=== PATIENT | male | born 1945 | race Caucasian/White ===

== ENCOUNTER → 2017-09-20 11:44 | Outpatient (CLI) | payer OTHER, SELFPAY ==
[2017-09-20 12:26] LABS: Appearance Urine UA CLEAR; Bilirubin Urine UA NEGATIVE (NEGATIVE); Color Urine UA YELLOW; Glucose Urine UA NEGATIVE (Normal); Ketones Urine UA NEGATIVE (NEGATIVE); Leukocyte Esterase Urine UA NEGATIVE (NEGATIVE); Nitrite Urine UA Negative (Negative); Occult Blood Urine UA NEGATIVE (Negative); Protein Urine UA TRACE (Negative); Specific Gravity Urine UA 1.025 (1.000-1.035); Urobilinogen Urine UA 0.2 E.U./dL (0.2)
[2017-09-20 12:34] LABS: Add Manual Diff / Slide Review NO; Basophils Percent Auto 0.6 % (0-2); Eosinophils Percent Auto 1.4 % (2-4); Hematocrit 40.8 % (41-53); Hemoglobin 13.6 g/dL (13.5-17.5); Mean Corpuscular HGB Conc 33.2 % (30-36); Mean Corpuscular Hemoglobin 27.1 PG (26-34); Mean Corpuscular Volume 81.6 fL (80-100); Monocytes Percent Auto 4.4 % (3-14); Neutrophils Absolute Auto 4700 /uL (3000-5900); Neutrophils Percent Auto 67.6 % (50-75); Platelet Count 252 X10^3/uL (150-400); Red Cell Distribution Width 13.9 % (11.6-14.8)
[2017-09-20 12:48] LABS: Alanine Aminotransferase 24 IU/L (21-72); Albumin 4.5 g/dL (3.5-5.0); Albumin Globulin Ratio 1.5 (1.0-2.8); Alkaline Phosphatase 80 U/L (38-126); Aspartate Aminotransferase 25 IU/L (17-59); BUN Creatinine Ratio 20.9 (6-22); Bilirubin Total 0.6 mg/dL (0.2-1.3); Blood Urea Nitrogen 23 mg/dL (9-20); Calcium 9.6 mg/dL (8.4-10.2); Carbon Dioxide 33 mmol/L (22-32); Chloride 103 mmol/L (98-107); Cholesterol 178 mg/dL (140-199); Estimated Glomerular Filt Rate > 60.0 mL/min (>60); Glucose 95 mg/dL (80-110); HDL Cholesterol 46 mg/dL (40-60); HEMOLYSIS < 15 (0-50); LDL Cholesterol Calculated 75 mg/dL (<100); Potassium 5.3 mmol/L (3.4-5.1); Sodium 145 mmol/L (137-145); Total Protein 7.5 g/dL (6.3-8.2); Triglycerides 287 mg/dL (35-150)
[2017-09-20 13:15] LABS: Prostate Specific Antigen Scrn 2.23 ng/mL (0.1-4.0)
[2017-09-20 13:18] LABS: Thyroid Stimulating Hormone 1.65 uIU/mL (0.47-4.68)
== END ==
PROVIDERS: PCP Family Medicine; Visit Provider Family Medicine
DX: E78.5 Hyperlipidemia, unspecified (principal); I10 Essential (primary) hypertension; Z12.5 Encounter for screening for malignant neoplasm of prostate
CPT/HCPCS: 36415; 80053; 80061; 81003; 84443; 85025; G0103

== ENCOUNTER → 2018-04-02 10:20 | Outpatient (CLI) | payer OTHER, SELFPAY ==
[2018-04-02 11:20] LABS: Add Manual Diff / Slide Review YES; Hematocrit 43.7 % (41-53); Hemoglobin 14.6 g/dL (13.5-17.5); Mean Corpuscular HGB Conc 33.4 % (30-36); Mean Corpuscular Hemoglobin 27.7 PG (26-34); Mean Corpuscular Volume 82.8 fL (80-100); Red Blood Cell Count 5.28 X10^6/uL (4.5-5.9); Red Cell Distribution Width 13.9 % (11.6-14.8); White Blood Cell Count 7.4 X10^3/uL (4.5-11.0)
[2018-04-02 11:51] LABS: Neutrophils Absolute Manual 4662 /uL (3000-5900); Total Cells Counted 100
[2018-04-02 11:58] LABS: Alanine Aminotransferase 30 IU/L (21-72); Albumin 4.6 g/dL (3.5-5.0); Albumin Globulin Ratio 1.4 (1.0-2.8); Alkaline Phosphatase 84 U/L (38-126); Aspartate Aminotransferase 24 IU/L (17-59); Bilirubin Total 0.6 mg/dL (0.2-1.3); Blood Urea Nitrogen 21 mg/dL (9-20); Calcium 9.5 mg/dL (8.4-10.2); Carbon Dioxide 30 mmol/L (22-32); Chloride 100 mmol/L (98-107); Cholesterol 192 mg/dL (140-199); Estimated Glomerular Filt Rate > 60.0 mL/min (>60); Globulin 3.3 g/dL (1.7-4.1); Glucose 93 mg/dL (80-110); HDL Cholesterol 50 mg/dL (40-60); HEMOLYSIS < 15 (0-50); LDL Cholesterol Calculated 80 mg/dL (<100); Potassium 4.5 mmol/L (3.4-5.1); Sodium 141 mmol/L (137-145); Total Protein 7.9 g/dL (6.3-8.2); Triglycerides 310 mg/dL (35-150)
[2018-04-02 12:29] LABS: Thyroid Stimulating Hormone 1.38 uIU/mL (0.47-4.68)
== END ==
PROVIDERS: PCP Family Medicine; Visit Provider Family Medicine
DX: E78.5 Hyperlipidemia, unspecified (principal); I10 Essential (primary) hypertension; R53.83 Other fatigue
CPT/HCPCS: 36415; 80053; 80061; 84403; 84443; 85025

== ENCOUNTER → 2018-10-24 15:51 | Outpatient (CLI) | payer OTHER, SELFPAY ==
[2018-10-24 16:27] LABS: Add Manual Diff / Slide Review NO; Basophils Absolute Auto 0 /uL (0-100); Basophils Percent Auto 0.7 % (0-2); Eosinophils Absolute Auto 200 /uL (0-450); Eosinophils Percent Auto 2.6 % (2-4); Hematocrit 40.9 % (41-53); Hemoglobin 13.6 g/dL (13.5-17.5); Lymphocytes Absolute Auto 1900 /uL (1100-4500); Lymphocytes Percent Auto 31.5 % (25-40); Mean Corpuscular HGB Conc 33.3 % (30-36); Mean Corpuscular Hemoglobin 27.5 PG (26-34); Mean Corpuscular Volume 82.7 fL (80-100); Monocytes Absolute Auto 400 /uL (0-900); Monocytes Percent Auto 5.9 % (3-14); Neutrophils Absolute Auto 3700 /uL (1500-7000); Neutrophils Percent Auto 59.3 % (50-75); Platelet Count 241 X10^3/uL (150-400); Red Blood Cell Count 4.95 X10^6/uL (4.5-5.9); White Blood Cell Count 6.2 X10^3/uL (4.5-11.0)
[2018-10-24 16:45] LABS: Alanine Aminotransferase 13 IU/L (21-72); Albumin 4.1 g/dL (3.5-5.0); Albumin Globulin Ratio 1.2 (1.0-2.8); Alkaline Phosphatase 85 U/L (38-126); Aspartate Aminotransferase 19 IU/L (17-59); BUN Creatinine Ratio 14.3 (6-22); Bilirubin Total 0.5 mg/dL (0.2-1.3); Blood Urea Nitrogen 20 mg/dL (9-20); Carbon Dioxide 29 mmol/L (22-32); Chloride 104 mmol/L (98-107); Cholesterol 187 mg/dL (140-199); Estimated Glomerular Filt Rate 49.8 mL/min (>60); Globulin 3.3 g/dL (1.7-4.1); Glucose 91 mg/dL (80-110); HDL Cholesterol 41 mg/dL (40-60); HEMOLYSIS < 15 (0-50); LDL Cholesterol Calculated 81 mg/dL (<100); Potassium 4.8 mmol/L (3.4-5.1); Sodium 141 mmol/L (137-145); Total Protein 7.4 g/dL (6.3-8.2); Triglycerides 323 mg/dL (35-150)
== END ==
PROVIDERS: PCP Family Medicine; Visit Provider Family Medicine
DX: E78.5 Hyperlipidemia, unspecified (principal); I10 Essential (primary) hypertension
CPT/HCPCS: 36415; 80053; 80061; 85025

== ENCOUNTER → 2019-08-19 10:10 | Outpatient (CLI) | payer OTHER, SELFPAY ==
[2019-08-19 11:48] LABS: Hemoglobin A1C% w Est Avg Glu 5.3 % (4.0-6.0)
[2019-08-19 12:15] LABS: Alanine Aminotransferase 17 IU/L (<50); Albumin 4.2 g/dL (3.5-5.0); Albumin Globulin Ratio 1.3 (1.0-2.8); Alkaline Phosphatase 81 U/L (38-126); Aspartate Aminotransferase 30 IU/L (17-59); BUN Creatinine Ratio 15.2 (6-22); Bilirubin Total 0.6 mg/dL (0.2-1.3); Blood Urea Nitrogen 16 mg/dL (9-20); Calcium 9.3 mg/dL (8.4-10.2); Carbon Dioxide 34 mmol/L (22-32); Chloride 104 mmol/L (98-107); Estimated Glomerular Filt Rate > 60.0 mL/min (>60); Globulin 3.2 g/dL (1.7-4.1); Glucose 101 mg/dL (80-110); HEMOLYSIS < 15 (0-50); Sodium 142 mmol/L (137-145); Total Protein 7.4 g/dL (6.3-8.2)
[2019-08-19 12:22] LABS: Potassium 5.4 mmol/L (3.4-5.1)
[2019-08-19 12:41] LABS: Thyroid Stimulating Hormone 0.988 uIU/mL (0.47-4.68)
== END ==
PROVIDERS: PCP Family Medicine; Referring Provider Family Medicine; Visit Provider Family Medicine
DX: I10 Essential (primary) hypertension (principal)
CPT/HCPCS: 36415; 80053; 83036; 84443

== ENCOUNTER 2020-03-24 13:36 | Outpatient (RCR) | payer OTHER, SELFPAY ==
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
--- NOTE | 2020-03-24 14:30 | PT.OPPOC ---
Physical, Occupational & Speech Therapy At [facility] Current Diagnoses Other abnormalities of gait and mobility (03/24/20) Personal history of (healed) traumatic fracture (03/24/20) History of falling (03/24/20) Visit Care Team Role Provider Type Joshua Herndon DO Attending Provider Physician Family Provider Primary Care Provider Referring Provider Specialty: Family Practice Address: [address] [place] [address], [facility] Email: [email or web address] Plan Of Care PT-OP-T Assessment and Plan Start: 03/24/20 17:44 Freq: Status: Active Protocol: Document 03/24/20 13:45 DCW (Rec: 03/25/20 08:53 DCW [id number]) Physical Therapy Assessment Rehab Potential Rehabilitation Potential Good Evaluation Complexity Number of Personal Factors/Comorbidities 1-2 Number of Body Systems Impaired 1-2 Clinical Presentation at Evaluation Stable Impairments Impairments Activity Tolerance,Balance, Functional Activities, Functional Mobility,Strength, Vestibular Other Concerns Fall Risk Yes, per DGI score () Goals Three Impairment Pt unable to enjoy [employer] hunting due to decreased ambulation tolerance [employer] Goal (LTG) Pt to report ability to tolerate walking entire [employer] with no increased pain. LTG Duration 05/22/20 Two Impairment Pt unable to stand longer than 20 minutes due to pain Residential Goal (LTG) Pt to show ability to stand for 35 minutes in kitchen with no increased pelvis pain. LTG Duration 05/22/20 One Impairment Pt does not have an appropriate home exercise program Short Term Goal (STG) Pt to be independent and compliant with an appropriate HEP STG Duration 04/24/20 Assessment Summary Assessment Pt presents with signs and symptoms of generalized decline in balance. Pt's static balance is WNL (50/56 Silverman), however his dynamic balance ( DGI) puts him into an increased falls risk category. Pt also displays some mild bilateral lower extremity weakness, particularly his bilateral ankle plantar flexion and left knee flexion. Pt is limited with many of his preferred hobbies, due to both decreased balance and decreased activity tolerance. Pt should benefit from skilled therapy focusing on balance training, NMR, strengthening, and improving activity tolerance. Pt's main concern is his $40 co-pay, and he states this is much more than what he was expecting, and he does not think he'll be able to attend therapy for many visits at this cost, and will need a comprehensive HEP that he can safely perform at home. Physical Therapy Plan Frequency and Duration Frequency of Treatment 1x/Week Duration of Treatment 6 weeks Plan of Care Start Date 03/24/20 Plan of Care End Date 05/05/20 Therapeutic Interventions Therapeutic Interventions Balance Training,Coordination Training,Home Exercise Program ,Neuromuscular Re-education, Patient/Caregiver Education, Self-Care/Home Management, Therapeutic Activities, Therapeutic Exercises Next Visit Focus/Plan Next Note Type Treatment Note Next Visit Plan Balance training, NMR, Strengthening Plan of Care Dates Plan of Care Start Date 03/24/20 Plan of Care End Date 05/05/20 Electronically Signed by: Samir Olson, PT 03/25/20 0869 Please Sign and Return: I have reviewed this Plan of Care and certify that the skilled therapy services above are required to meet the patient?s needs. Physician Signature Date Printed Name and Credentials Clinical Instructor Signature Printed Name and Credentials
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
== END 2020-04-04 14:10 ==
LOC: PHYS 13:36
PROVIDERS: Family Provider Family Medicine; PCP Family Medicine; Referring Provider Family Medicine; Visit Provider Family Medicine
DX: Z87.81 Personal history of (healed) traumatic fracture (principal); Z91.81 History of falling; R26.89 Other abnormalities of gait and mobility
CPT/HCPCS: 97161

== ENCOUNTER → 2020-08-24 15:41 | Outpatient (CLI) | payer OTHER, SELFPAY ==
[2020-08-24 17:13] LABS: Alanine Aminotransferase 25 IU/L (<50); Albumin 4.2 g/dL (3.5-5.0); Albumin Globulin Ratio 1.2 (1.0-2.8); Alkaline Phosphatase 100 U/L (38-126); Aspartate Aminotransferase 30 IU/L (17-59); BUN Creatinine Ratio 10.4 (6-22); Bilirubin Total 0.6 mg/dL (0.2-1.3); Blood Urea Nitrogen 11 mg/dL (9-20); Calcium 9.4 mg/dL (8.4-10.2); Carbon Dioxide 30 mmol/L (22-32); Chloride 104 mmol/L (98-107); Estimated Glomerular Filt Rate > 60.0 mL/min (>60); Globulin 3.5 g/dL (1.7-4.1); Glucose 110 mg/dL (80-110); HEMOLYSIS < 15 (0-50); Potassium 4.4 mmol/L (3.4-5.1); Sodium 142 mmol/L (137-145); Total Protein 7.7 g/dL (6.3-8.2)
== END ==
PROVIDERS: Family Provider Family Medicine; PCP Family Medicine; Referring Provider Family Medicine; Visit Provider Family Medicine
DX: Z87.81 Personal history of (healed) traumatic fracture (principal)
CPT/HCPCS: 36415; 80053

== ENCOUNTER → 2020-12-26 11:43 | Outpatient (CLI) | payer OTHER, SELFPAY ==
--- NOTE | 2020-12-26 11:44 | DI.RAD.S_ITS ---
PROCEDURE: XR LUMBAR SPINE 2-3V INDICATIONS: chronic l;ow back pain TECHNIQUE: 3 views of the lumbar spine were acquired. COMPARISON: None. FINDINGS: Bones: 5 [id number] vertebrae are present. There is mild levoscoliosis of thoracolumbar spine centered at L1 level. Degenerative endplate changes and bilateral facet arthrosis throughout lumbar spine is seen. Minimal retrolisthesis of L2 on L3 is noted.. No vertebral body compression fractures. No suspicious bony lesions. Long fixation screw extending through left sacroiliac joint and sacrum is noted. Post fixation changes at symphysis pubis are also seen. No gross hardware loosening or failure. Soft tissues: Overlying bowel gas pattern is normal. No suspicious soft tissue calcifications. IMPRESSION: Degenerative disc disease throughout lumbar spine as above. No acute compression fracture. Minimal retrolisthesis at L2-3 level. Mild levoscoliosis centered at L1-2 level. Dictated by: Michael Boyle M.D. on 12/26/2020 at 13:15 Approved by: Michael Boyle M.D. on 12/26/2020 at 13:16
== END ==
PROVIDERS: Family Provider Family Medicine; PCP Family Medicine; Referring Provider Family Medicine; Visit Provider Family Medicine
DX: M43.16 Spondylolisthesis, lumbar region (principal); G89.29 Other chronic pain; M51.36 Other intervertebral disc degeneration, lumbar region; E78.5 Hyperlipidemia, unspecified; Z87.81 Personal history of (healed) traumatic fracture
CPT/HCPCS: 72100

== ENCOUNTER → 2021-12-22 14:07 | Outpatient (CLI) | payer OTHER, SELFPAY ==
[2021-12-22 15:46] LABS: Add Manual Diff / Slide Review NO; Basophils Absolute Auto 0 /uL (0-100); Basophils Percent Auto 0.4 % (0-2); Eosinophils Absolute Auto 200 /uL (0-450); Eosinophils Percent Auto 1.6 % (2-4); Hematocrit 41.4 % (41-53); Lymphocytes Absolute Auto 2000 /uL (1100-4500); Lymphocytes Percent Auto 19.4 % (25-40); Mean Corpuscular HGB Conc 33.8 % (30-36); Mean Corpuscular Hemoglobin 27.7 PG (26-34); Mean Corpuscular Volume 82.1 fL (80-100); Monocytes Absolute Auto 500 /uL (0-900); Monocytes Percent Auto 4.9 % (3-14); Neutrophils Absolute Auto 7500 /uL (1500-7000); Neutrophils Percent Auto 73.7 % (50-75); Platelet Count 275 X10^3/uL (150-400); Red Blood Cell Count 5.04 X10^6/uL (4.5-5.9); Red Cell Distribution Width 13.2 % (11.6-14.8); White Blood Cell Count 10.2 X10^3/uL (4.5-11.0)
[2021-12-22 16:15] LABS: Alanine Aminotransferase 16 IU/L (<50); Albumin 4.2 g/dL (3.5-5.0); Albumin Globulin Ratio 1.2 (1.0-2.8); Alkaline Phosphatase 116 U/L (38-126); Aspartate Aminotransferase 20 IU/L (17-59); BUN Creatinine Ratio 11.7 (6-22); Bilirubin Total 0.5 mg/dL (0.2-1.3); Blood Urea Nitrogen 15 mg/dL (9-20); Calcium 9.1 mg/dL (8.4-10.2); Carbon Dioxide 29 mmol/L (22-32); Chloride 100 mmol/L (98-107); Cholesterol 160 mg/dL (140-199); Estimated Glomerular Filt Rate 58 mL/min (>60); Globulin 3.4 g/dL (1.7-4.1); Glucose 90 mg/dL (80-110); HDL Cholesterol 34 mg/dL (40-60); HEMOLYSIS < 15 (0-50); LDL Cholesterol Calculated 86 mg/dL (<100); Potassium 4.1 mmol/L (3.4-5.1); Sodium 142 mmol/L (137-145); Total Protein 7.6 g/dL (6.3-8.2); Triglycerides 198 mg/dL (35-150)
[2021-12-22 16:46] LABS: Prostate Specific Antigen 2.77 ng/mL (0.10-4.00)
== END ==
PROVIDERS: Family Provider Family Medicine; PCP Family Medicine; Referring Provider Family Medicine; Visit Provider Family Medicine
DX: Z00.00 Encounter for general adult medical examination without abnormal findings (principal); E78.5 Hyperlipidemia, unspecified
CPT/HCPCS: 36415; 80053; 80061; 84153; 85025

== ENCOUNTER 2022-06-21 00:39 | Inpatient (IN) | payer OTHER, SELFPAY ==
[2022-06-21] VITALS (34 sets, daily range): BP systolic 95–190; BP diastolic 46–100; PULSE 57–112; RESP 14–52; TEMP 36.1–40; O2SAT 88–100; BMI 37.0
--- NOTE | 2022-06-21 00:47 | DI.RAD.S_ITS ---
PROCEDURE: XR CHEST 1V INDICATIONS: short of breath TECHNIQUE: One view of the chest was acquired. COMPARISON: None. FINDINGS: Surgical changes and devices: None. Lungs and pleura: The lung apices are partially obscured by patient's neck soft tissues. No definite pneumothorax. There is a small left pleural effusion and suspected small right effusion. Associated confluent opacities in the left lung base are consistent with atelectasis or consolidation. Mediastinum: Heart size is normal. Bones and chest wall: No suspicious bony lesions. Overlying soft tissues appear unremarkable. IMPRESSION: 1. Small left pleural effusion with associated left basilar atelectasis or consolidation. 2. Suspected small right effusion. Dictated by: Cleveland Saxena M.D. on 06/21/2022 at 1:17 Approved by: Cleveland Saxena M.D. on 06/21/2022 at 1:18
[2022-06-21] MEDS: FUROSEMIDE 40 MG/4 ML VIAL IV (00:51)
[2022-06-21] MEDS: ACETAMINOPHEN 650 MG SUPP PR (01:03)
[2022-06-21 01:09] LABS: INR 1.2 (0.9-1.3); Prothrombin Time 13.3 SECONDS (10.1-12.7)
[2022-06-21 01:11] LABS: Appearance Urine UA CLEAR; Bilirubin Urine UA 1+ (NEGATIVE); Color Urine UA YELLOW; Glucose Urine UA NEGATIVE (Negative); Ketones Urine UA TRACE (NEGATIVE); Leukocyte Esterase Urine UA NEGATIVE (NEGATIVE); Nitrite Urine UA NEGATIVE (Negative); Occult Blood Urine UA NEGATIVE (Negative); Protein Urine UA 2+ (Negative)
[2022-06-21 01:12] LABS: PTT Partial Thromboplastin Tim 26 SECONDS (26-36)
[2022-06-21 01:13] LABS: Lactate (Lactic Acid) 3.5 mmol/L (0.7-2.1)
--- NOTE | 2022-06-21 01:13 | ED.SOB ---
HPI - SOB/Dyspnea General Chief Complaint: Shortness of Breath/Dyspnea Stated Complaint: generalized weakness Time Seen by Provider: 06/21/22 00:45 Source: EMS Mode of arrival: EMS Limitations: no limitations History of Present Illness HPI Narrative: Patient is 76-year-old male history of hypertension hyperlipidemia chronic pain presents today with confusion and shortness of breath. Partner reports that he has not been himself for at least the last 3-4 days. Tonight he got significantly more confused. EMS reports that he is audibly wheezing hypoxic and overall appeared ill. He has a temperature here of 102. Not able to follow commands or answer questions. Noted to be in [id number] respiratory distress he was given albuterol with EMS with some improvement. He is no prior history of COPD or asthma according to partner or records. Related Data Home Medications Medication Instructions Recorded Confirmed MULTIVITAMIN (One Daily 1 tab PO Q DAY ##0 01/02/11 12/22/21 Multivitamin) coenzyme Q10 30 mg capsule (CoQ-10) 30 mg PO DAILY 09/20/17 12/22/21 Previous Rx's Medication Instructions Recorded amlodipine 5 mg tablet 5 mg PO DAILY #90 tabs 06/16/21 atorvastatin 20 mg tablet 20 mg PO DAILY #90 tabs 09/14/21 lisinopril 20 mg tablet 20 mg PO BID #180 tabs 09/14/21 metoprolol succinate 50 mg 50 mg PO QDAY #90 tabs 09/14/21 tablet,extended release 24 hr (Toprol XL) gabapentin 300 mg capsule 900 mg PO TID #810 caps 11/20/21 (Neurontin) paroxetine HCl 20 mg tablet See Rx Instructions .Route 04/09/22 .COMPLEX #90 tabs oxycodone-acetaminophen 10 mg-325 1 tab PO Q6HP PRN pain #120 tabs 05/23/22 mg tablet Allergies Allergy/AdvReac Type Severity Reaction Status Date / Time No Known Drug Allergies Allergy Verified 12/22/21 13:37 Review of Systems Review of Systems ROS Unobtainable: Unobtainable due to medical condition Patient History Medical History Actinic keratoses Actinic keratosis (Unknown) Arthritis (Unknown) Basal cell carcinoma (Unknown) Chronic low back pain Fractures (Unknown) GERD (gastroesophageal reflux disease) (Unknown) Hearing loss (Unknown) Hyperlipemia (Unknown) Hypertension (Unknown) Hypogonadism Kidney stones (Unknown) Melanoma (2016) Obstructive sleep apnea Psoriasis (Unknown) Squamous cell carcinoma (Unknown) Surgical History History of cystoscopy Hx of hernia repair (2016) Status post colostomy Family History Mother Heart disease Hypertension Stroke [place] (myocardial infarction) Sister Hypertension Social History Smoking Status: Current some day smoker Tobacco: How many years used: 14 quit status: has quit before second hand exposure: Yes (childhood) alcohol intake: current (1-2 drinks every other month ) substance use type: does not use Smoking Status: Current some day smoker Exam Initial Vital Signs Initial Vital Signs: Vital Signs Fraction of Inspired Oxygen 100 06/21/22 00:30 GENERAL: Alert confused 76-year-old male moving extremities but not following commands HEENT: Head atraumatic,EOMI, pupils reactive, face symmetric, moist mucous membranes CARDIOVASCULAR: Regular rate and rhythm without murmurs, rubs or gallops. RESPIRATORY: Tachypneic [id number] respiratory distress with audible wheezing decreased breath sounds bilaterally ABDOMEN: Soft, nontender. Normoactive bowel sounds all 4 quadrants. No guarding or rebound. EXTREMITIES: Normal range of motion, no clubbing or edema. Neurovascularly intact NEUROLOGICAL: Alert and oriented x0. Moving all extremities SKIN: Warm, dry, no laceration, no petechiae, no rashes or lesions. Course Orders Ordered: ED Orders 06/21/22 00:45 Arterial Blood Gas Stat COVID19 -Nasal RAPID Stat 06/21/22 00:46 EKG-12 Lead Stat 06/21/22 00:47 Chest [XR chest 1V] Stat 06/21/22 00:50 Respiratory Panel (Film Array) Stat 06/21/22 00:52 Complete Blood Count AUTO DIFF Stat Comprehensive Metabolic Panel Stat Lactate (Lactic Acid) Stat NT-proBNP (BNP-Adult 18+) Stat PTT Partial Thromboplastin Michael Stat Procalcitonin Stat Prothrombin Time INR Stat Troponin & CK Cardiac Panel Stat 06/21/22 00:55 Blood Culture Stat 06/21/22 01:05 Ictotest Urine Stat Urinalysis and Microscopic Stat 06/21/22 01:54 CT abdomen pelvis w con Stat CT angio chest PE protocol Stat Sodium Chloride (Normal Saline 0.9%) 1,000 mls @ 100 mls/hr IV CONT ANEL Last Admin: 06/21/22 03:18 Dose: 100 mls/hr Documented By: ERI Sodium Chloride (Normal Saline 0.9%) 2,328 mls @ 776 mls/hr 30 ml/kg infuse over 3 hr (2328 ml) IV NOW ONE Stop: 06/21/22 04:40 Last Infusion: 06/21/22 03:42 Dose: 0 mls/hr Documented By: Admin: 06/21/22 01:48 Dose: 776 mls/hr Documented By: ERI Discontinued Medications Acetaminophen (Acetaminophen 650 Mg Supp) 650 mg VT NOW ONE Stop: 06/21/22 00:58 Last Admin: 06/21/22 01:03 Dose: 650 mg Documented By: REI Furosemide (Furosemide 40 Mg/4 Ml Vial) 40 mg IV NOW ONE Stop: 06/21/22 00:46 Last Admin: 06/21/22 00:51 Dose: 40 mg Documented By: ERI Piperacillin Sod/Tazobactam (Sod 4.5 gm/ Sodium Chloride) 100 mls @ 200 mls/hr IV NOW ONE Stop: 06/21/22 01:14 Last Infusion: 06/21/22 01:59 Dose: 0 mls/hr Documented By: Admin: 06/21/22 01:26 Dose: 200 mls/hr Documented By: ERI Vancomycin HCl/Dextrose (Vancomycin) 2,000 mg in 400 mls @ 200 mls/hr IV NOW ONE Stop: 06/21/22 03:13 Last Infusion: 06/21/22 03:42 Dose: 0 mls/hr Documented By: Admin: 06/21/22 01:20 Dose: 200 mls/hr Documented By: ERI Sodium Chloride (Normal Saline 0.9%) 1,000 mls @ 1,000 mls/hr IV BOLUS ONE Stop: 06/21/22 02:26 Last Infusion: 06/21/22 03:19 Dose: 0 mls/hr Documented By: Infusion: 06/21/22 03:19 Dose: 0 mls/hr Documented By: Infusion: 06/21/22 01:48 Dose: 0 mls/hr Documented By: Admin: 06/21/22 01:34 Dose: 1,000 mls/hr Documented By: ERI Ketorolac Tromethamine (Ketorolac 30 Mg/Ml Vial) 15 mg IV NOW ONE Stop: 06/21/22 01:42 Last Admin: 06/21/22 01:46 Dose: 15 mg Documented By: ERI Vital Signs Vital signs: Vital Signs - 8 hr 06/21/22 00:43 06/21/22 01:03 06/21/22 00:51 Temperature 102.3 F H 102.3 F H Pulse Rate 112 H 105 H Respiratory Rate 24 32 H Blood Pressure 135/85 Pulse Oximetry 97 100 Oxygen Delivery Method Nasal Cannula Oxygen Flow Rate 7 Fraction of Inspired Oxygen 06/21/22 01:46 06/21/22 01:00 06/21/22 01:14 Temperature 104 F H 102.4 F H Pulse Rate 104 H 107 H Respiratory Rate 40 H 43 H Blood Pressure Pulse Oximetry 100 99 Oxygen Delivery Method BiPAP Oxygen Flow Rate Fraction of Inspired Oxygen 06/21/22 01:14 06/21/22 01:30 06/21/22 01:31 Temperature 103.8 F H 104.0 F H Pulse Rate 103 H 103 H Respiratory Rate 30 H 52 H Blood Pressure 130/77 Pulse Oximetry 99 99 Oxygen Delivery Method BiPAP BiPAP Oxygen Flow Rate Fraction of Inspired Oxygen 06/21/22 01:31 06/21/22 01:54 06/21/22 02:00 Temperature 104.0 F H Pulse Rate Respiratory Rate Blood Pressure 95/57 L 100/61 Pulse Oximetry Oxygen Delivery Method Oxygen Flow Rate Fraction of Inspired Oxygen 06/21/22 02:00 06/21/22 02:38 06/21/22 02:30 Temperature 103.5 F H 102.0 F H 102.4 F H Pulse Rate 92 H 91 H Respiratory Rate 31 H 43 H Blood Pressure Pulse Oximetry 98 99 Oxygen Delivery Method BiPAP BiPAP Oxygen Flow Rate Fraction of Inspired Oxygen 06/21/22 02:42 06/21/22 02:42 06/21/22 03:00 Temperature 101.8 F H Pulse Rate 90 Respiratory Rate 23 Blood Pressure 131/66 129/62 Pulse Oximetry 88 L Oxygen Delivery Method Room Air Oxygen Flow Rate Fraction of Inspired Oxygen 06/21/22 03:00 06/21/22 00:30 06/21/22 01:30 Temperature 101.3 F H Pulse Rate 85 Respiratory Rate 22 Blood Pressure Pulse Oximetry 94 Oxygen Delivery Method Oxygen Flow Rate 3 Fraction of Inspired Oxygen 100 85 MDM - SOB/Dyspnea Lab Data 06/21/22 00:52 06/21/22 00:52 Labs: Lab Results 06/21/22 06/21/22 06/21/22 Range/Units 00:50 00:52 00:52 WBC 18.7 H (4.5-11.0) X10^3/uL RBC 4.59 (4.5-5.9) X10^6/uL Hgb 12.8 L (13.5-17.5) g/dL Hct 38.2 L (41-53) % MCV 83.3 (80-100) fL MCH 27.8 (26-34) PG MCHC 33.4 (30-36) % RDW 12.8 (11.6-14.8) % Plt Count 358 (150-400) X10^3/uL Neut % (Auto) 73.0 (50-75) % Lymph % (Auto) 20.8 L (25-40) % Bullock % (Auto) 4.7 (3-14) % Eos % (Auto) 1.2 L (2-4) % Baso % (Auto) 0.3 (0-2) % Neut # (Auto) 70341 H (0898-3274) /uL Lymph # (Auto) 3900 (9331-8063) /uL Bullock # (Auto) 900 (0-900) /uL Eos # (Auto) 200 (0-450) /uL Baso # (Auto) 100 (0-100) /uL PT (10.1-12.7) SECONDS INR (0.9-1.3) APTT (26-36) SECONDS Sodium (137-145) mmol/L Potassium (3.4-5.1) mmol/L Chloride (98-107) mmol/L Carbon Dioxide (22-32) mmol/L BUN (9-20) mg/dL Creatinine (0.66-1.25) mg/dL Estimated GFR (>60) mL/min BUN/Creatinine Ratio (6-22) Glucose (80-110) mg/dL Lactate (0.7-2.1) mmol/L Calcium (8.4-10.2) mg/dL Total Bilirubin (0.2-1.3) mg/dL AST (17-59) IU/L ALT (<50) IU/L Alkaline Phosphatase (38-126) U/L Total Creatine Kinase (55-170) U/L CK-MB (CK-2) CK-MB (CK-2) Rel Index Troponin I (0.01-0.034) ng/mL NT-Pro-B Natriuret Pep 192 (<450) pg/mL Total Protein (6.3-8.2) g/dL Albumin (3.5-5.0) g/dL Globulin (1.7-4.1) g/dL Albumin/Globulin Ratio (1.0-2.8) Procalcitonin (<0.5) ng/mL Urine Color Urine Appearance Urine pH (4.5-8.0) Ur Specific [place] (1.000-1.035) Urine Protein (Negative) Urine Glucose (UA) (Negative) g/dL Urine Ketones (NEGATIVE) Urine Occult Blood (Negative) Urine Nitrate (Negative) Urine Bilirubin (NEGATIVE) Ur Bilirubin Confirm (Negative) Urine Urobilinogen (0.2) E.U./dL Ur Leukocyte Esterase (NEGATIVE) Urine RBC (0-5/HPF) Urine WBC (0-5/HPF) Calcium Oxalate Crystal Urine Bacteria (None) Urine Mucus (Negative) Ur Culture Indicated? Chlamy pneumoniae PCR Not detected (Not Detect) Adenovirus (PCR) Not detected (Not Detect) B. pertussis DNA (PCR) Not detected (Not Detecte) B.parapertussis DNA PCR Not detected (Not Detecte) Coronavirus OC43 (PCR) Not detected (Not Detect) Coronavirus HKU1 (PCR) Not detected (Not Detect) Coronavirus 229E (PCR) Not detected (Not Detect) SARS-CoV-2 (PCR) Not detected (Not Detecte) Coronavirus NL63 (PCR) Not detected (Not Detect) Human Metapneumovir PCR Not detected (Not Detect) Influenza Type A (PCR) Not detected (Not Detect) Influenza Type B (PCR) Not detected (Not Detect) M. pneumoniae (PCR) Not detected (Not Detect) Parainfluenza 1 (PCR) Not detected (Not Detect) Parainfluenza 2 (PCR) Not detected (Not Detect) Parainfluenza 3 (PCR) Not detected (Not Detect) Parainfluenza 4 (PCR) Not detected (Not Detect) RSV (PCR) Not detected (Not Detect) Entero/Rhino (PCR) Not detected (Not Detect) 06/21/22 06/21/22 06/21/22 Range/Units 00:52 00:52 00:52 WBC (4.5-11.0) X10^3/uL RBC (4.5-5.9) X10^6/uL Hgb (13.5-17.5) g/dL Hct (41-53) % MCV (80-100) fL MCH (26-34) PG MCHC (30-36) % RDW (11.6-14.8) % Plt Count (150-400) X10^3/uL Neut % (Auto) (50-75) % Lymph % (Auto) (25-40) % Bullock % (Auto) (3-14) % Eos % (Auto) (2-4) % Baso % (Auto) (0-2) % Neut # (Auto) (4345-8566) /uL Lymph # (Auto) (4124-4998) /uL Bullock # (Auto) (0-900) /uL Eos # (Auto) (0-450) /uL Baso # (Auto) (0-100) /uL PT 13.3 H (10.1-12.7) SECONDS INR 1.2 (0.9-1.3) APTT 26 (26-36) SECONDS Sodium 137 (137-145) mmol/L Potassium 3.5 (3.4-5.1) mmol/L Chloride 96 L (98-107) mmol/L Carbon Dioxide 30 (22-32) mmol/L BUN 17 (9-20) mg/dL Creatinine 1.09 (0.66-1.25) mg/dL Estimated GFR > 60 (>60) mL/min BUN/Creatinine Ratio 15.6 (6-22) Glucose 175 H (80-110) mg/dL Lactate 3.5 H (0.7-2.1) mmol/L Calcium 8.1 L (8.4-10.2) mg/dL Total Bilirubin 0.7 (0.2-1.3) mg/dL AST 24 (17-59) IU/L ALT 21 (<50) IU/L Alkaline Phosphatase 101 (38-126) U/L Total Creatine Kinase 57 (55-170) U/L CK-MB (CK-2) TNP CK-MB (CK-2) Rel Index TNP Troponin I < 0.012 (0.01-0.034) ng/mL NT-Pro-B Natriuret Pep (<450) pg/mL Total Protein 7.5 (6.3-8.2) g/dL Albumin 3.9 (3.5-5.0) g/dL Globulin 3.6 (1.7-4.1) g/dL Albumin/Globulin Ratio 1.1 (1.0-2.8) Procalcitonin 0.10 (<0.5) ng/mL Urine Color Urine Appearance Urine pH (4.5-8.0) Ur Specific [place] (1.000-1.035) Urine Protein (Negative) Urine Glucose (UA) (Negative) g/dL Urine Ketones (NEGATIVE) Urine Occult Blood (Negative) Urine Nitrate (Negative) Urine Bilirubin (NEGATIVE) Ur Bilirubin Confirm (Negative) Urine Urobilinogen (0.2) E.U./dL Ur Leukocyte Esterase (NEGATIVE) Urine RBC (0-5/HPF) Urine WBC (0-5/HPF) Calcium Oxalate Crystal Urine Bacteria (None) Urine Mucus (Negative) Ur Culture Indicated? Chlamy pneumoniae PCR (Not Detect) Adenovirus (PCR) (Not Detect) B. pertussis DNA (PCR) (Not Detecte) B.parapertussis DNA PCR (Not Detecte) Coronavirus OC43 (PCR) (Not Detect) Coronavirus HKU1 (PCR) (Not Detect) Coronavirus 229E (PCR) (Not Detect) SARS-CoV-2 (PCR) (Not Detecte) Coronavirus NL63 (PCR) (Not Detect) Human Metapneumovir PCR (Not Detect) Influenza Type A (PCR) (Not Detect) Influenza Type B (PCR) (Not Detect) M. pneumoniae (PCR) (Not Detect) Parainfluenza 1 (PCR) (Not Detect) Parainfluenza 2 (PCR) (Not Detect) Parainfluenza 3 (PCR) (Not Detect) Parainfluenza 4 (PCR) (Not Detect) RSV (PCR) (Not Detect) Entero/Rhino (PCR) (Not Detect) 06/21/22 06/21/22 Range/Units 01:05 02:55 WBC (4.5-11.0) X10^3/uL RBC (4.5-5.9) X10^6/uL Hgb (13.5-17.5) g/dL Hct (41-53) % MCV (80-100) fL MCH (26-34) PG MCHC (30-36) % RDW (11.6-14.8) % Plt Count (150-400) X10^3/uL Neut % (Auto) (50-75) % Lymph % (Auto) (25-40) % Bullock % (Auto) (3-14) % Eos % (Auto) (2-4) % Baso % (Auto) (0-2) % Neut # (Auto) (6632-7430) /uL Lymph # (Auto) (7633-4909) /uL [place]ock # (Auto) (0-900) /uL Eos # (Auto) (0-450) /uL Baso # (Auto) (0-100) /uL PT (10.1-12.7) SECONDS INR (0.9-1.3) APTT (26-36) SECONDS Sodium (137-145) mmol/L Potassium (3.4-5.1) mmol/L Chloride (98-107) mmol/L Carbon Dioxide (22-32) mmol/L BUN (9-20) mg/dL Creatinine (0.66-1.25) mg/dL Estimated GFR (>60) mL/min BUN/Creatinine Ratio (6-22) Glucose (80-110) mg/dL Lactate 2.6 H (0.7-2.1) mmol/L Calcium (8.4-10.2) mg/dL Total Bilirubin (0.2-1.3) mg/dL AST (17-59) IU/L ALT (<50) IU/L Alkaline Phosphatase (38-126) U/L Total Creatine Kinase (55-170) U/L CK-MB (CK-2) CK-MB (CK-2) Rel Index Troponin I (0.01-0.034) ng/mL NT-Pro-B Natriuret Pep (<450) pg/mL Total Protein (6.3-8.2) g/dL Albumin (3.5-5.0) g/dL Globulin (1.7-4.1) g/dL Albumin/Globulin Ratio (1.0-2.8) Procalcitonin (<0.5) ng/mL Urine Color Yellow Urine Appearance Clear Urine pH 6.0 (4.5-8.0) Ur Specific [place] 1.020 (1.000-1.035) Urine Protein 2+ H (Negative) Urine Glucose (UA) Negative (Negative) g/dL Urine Ketones Trace H (NEGATIVE) Urine Occult Blood Negative (Negative) Urine Nitrate Negative (Negative) Urine Bilirubin 1+ H (NEGATIVE) Ur Bilirubin Confirm Negative (Negative) Urine Urobilinogen 1.0 (0.2) E.U./dL Ur Leukocyte Esterase Negative (NEGATIVE) Urine RBC None seen (0-5/HPF) Urine WBC None seen (0-5/HPF) Calcium Oxalate Crystal Few H Urine Bacteria None seen (None) Urine Mucus 1+ H (Negative) Ur Culture Indicated? Cult not indicated Chlamy pneumoniae PCR (Not Detect) Adenovirus (PCR) (Not Detect) B. pertussis DNA (PCR) (Not Detecte) B.parapertussis DNA PCR (Not Detecte) Coronavirus OC43 (PCR) (Not Detect) Coronavirus HKU1 (PCR) (Not Detect) Coronavirus 229E (PCR) (Not Detect) SARS-CoV-2 (PCR) (Not Detecte) Coronavirus NL63 (PCR) (Not Detect) Human Metapneumovir PCR (Not Detect) Influenza Type A (PCR) (Not Detect) Influenza Type B (PCR) (Not Detect) M. pneumoniae (PCR) (Not Detect) Parainfluenza 1 (PCR) (Not Detect) Parainfluenza 2 (PCR) (Not Detect) Parainfluenza 3 (PCR) (Not Detect) Parainfluenza 4 (PCR) (Not Detect) RSV (PCR) (Not Detect) Entero/Rhino (PCR) (Not Detect) Imaging Data Chest x-ray: Radiologist's Impression: PROCEDURE:? XR CHEST 1V ? INDICATIONS:? short of breath ? TECHNIQUE:? One view of the chest was acquired.? ? COMPARISON:? None. ? FINDINGS:? ? Surgical changes and devices:? None.? ? Lungs and pleura:? The lung apices are partially obscured by patient's neck soft tissues. ?No definite pneumothorax.? There is a small left pleural effusion and suspected small right effusion.? Associated confluent opacities in the left lung base are consistent with atelectasis or consolidation. ? Mediastinum:? Heart size is normal.? ? Bones and chest wall:? No suspicious bony lesions.? Overlying soft tissues appear unremarkable.? ? IMPRESSION:? ? 1. Small left pleural effusion with associated left basilar atelectasis or consolidation. ? 2. Suspected small right effusion.? ? ? Dictated by: Cleveland Saxena M.D. on 06/21/2022 at 1:17 ? ? CT scan - chest: Radiologist's Impression: Preliminary report moderate left-sided pleural effusion with airspace consolidation left lower lobe independently at the right lung base. This could indicate atelectasis or pneumonia. No evidence of pulmonary embolism. 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 He is some audible wheezing and tachypnea. He is immediately put on BiPAP given Lasix he was improve weeks of with albuterol. No prior history of congestive heart failure or COPD. He is found to have pneumonia both on chest x-ray and CT. He has leukocytosis of 18 lactic acid of 3.5, which improved to 2.6. Over time patient actually became alert oriented and cooperative. He was removed from BiPAP requiring about 1-2 L nasal cannula. He is able to answer questions appropriately. Symptoms are consistent with sepsis. Blood pressure did drop into the 90s however quickly improve. He was given Lasix 40 mg initially for respiratory distress and then given IV fluids. He is given Zosyn and vancomycin quickly. No evidence of UTI. The patient has become much more stable. The CTs do not show any other abnormality Dr. Hoff accepts patient Discharge Plan Departure Patient Disposition: Admitted As Inpatient Clinical Impression: Pneumonia, Sepsis Admit Date/Time: 06/21/22 03:23 Admit Provider: Sebastián Hoff
[2022-06-21 01:16] LABS: Alanine Aminotransferase 21 IU/L (<50); Albumin 3.9 g/dL (3.5-5.0); Albumin Globulin Ratio 1.1 (1.0-2.8); Alkaline Phosphatase 101 U/L (38-126); Aspartate Aminotransferase 24 IU/L (17-59); BUN Creatinine Ratio 15.6 (6-22); Bilirubin Total 0.7 mg/dL (0.2-1.3); Blood Urea Nitrogen 17 mg/dL (9-20); Calcium 8.1 mg/dL (8.4-10.2); Carbon Dioxide 30 mmol/L (22-32); Chloride 96 mmol/L (98-107); Creatine Kinase 57 U/L (55-170); Estimated Glomerular Filt Rate > 60 mL/min (>60); Globulin 3.6 g/dL (1.7-4.1); Glucose 175 mg/dL (80-110); HEMOLYSIS < 15 (0-50); Potassium 3.5 mmol/L (3.4-5.1); Sodium 137 mmol/L (137-145); Total Protein 7.5 g/dL (6.3-8.2)
[2022-06-21 01:19] LABS: Add Manual Diff / Slide Review NO; Basophils Absolute Auto 100 /uL (0-100); Basophils Percent Auto 0.3 % (0-2); Eosinophils Absolute Auto 200 /uL (0-450); Eosinophils Percent Auto 1.2 % (2-4); Hematocrit 38.2 % (41-53); Hemoglobin 12.8 g/dL (13.5-17.5); Lymphocytes Absolute Auto 3900 /uL (1100-4500); Lymphocytes Percent Auto 20.8 % (25-40); Mean Corpuscular HGB Conc 33.4 % (30-36); Mean Corpuscular Hemoglobin 27.8 PG (26-34); Mean Corpuscular Volume 83.3 fL (80-100); Monocytes Absolute Auto 900 /uL (0-900); Monocytes Percent Auto 4.7 % (3-14); Neutrophils Absolute Auto 13600 /uL (1500-7000); Platelet Count 358 X10^3/uL (150-400); Red Blood Cell Count 4.59 X10^6/uL (4.5-5.9); Red Cell Distribution Width 12.8 % (11.6-14.8); White Blood Cell Count 18.7 X10^3/uL (4.5-11.0)
[2022-06-21 01:20] LABS: Ictotest Urine Negative (Negative)
[2022-06-21] MEDS: VANCOMYCIN 2,000 MG/400 ML PIGGYBACK 200 MG IV (01:20)
[2022-06-21] MEDS: PIPERACILLIN/TAZO 4.5 GM in SODIUM CHLORIDE 0.9% 100 ML IV (01:26)
[2022-06-21 01:28] LABS: Troponin I < 0.012 ng/mL (0.01-0.034)
[2022-06-21] MEDS: SODIUM CHLORIDE 0.9% 1,000 ML 1000 ML IV (01:34)
[2022-06-21 01:38] LABS: Calcium Oxalate Crystals Urine Few; RBC Urine None Seen (0-5/HPF); WBC Urine None Seen (0-5/HPF)
[2022-06-21 01:39] LABS: Bacteria Urine None Seen; Culture Indicated Urine Cult Not Indicated; Mucus Urine 1+ (Negative)
[2022-06-21] MEDS: KETOROLAC 30 MG/ML VIAL 15 MG IV (01:46)
[2022-06-21] MEDS: SODIUM CHLORIDE 0.9% 2,328 ML 776 ML IV (01:48)
--- NOTE | 2022-06-21 01:54 | DI.CT.S_ITS ---
PROCEDURE: CT ABDOMEN PELVIS W CON INDICATIONS: fever sepsis TECHNIQUE: After the administration of intravenous contrast, axial sections acquired from the lung bases to the pubic symphysis. Coronal and sagittal reformats were performed. For radiation dose reduction, the following was used: automated exposure control, adjustment of mA and/or kV according to patient size. COMPARISON: None. FINDINGS: Image quality: Excellent. Lung bases: Please see dedicated chest CT. Heart: No significant findings. ABDOMEN: Liver: Unremarkable. Gallbladder: Cholelithiasis without wall thickening or adjacent fat stranding to suggest acute cholecystitis. Biliary ducts: Unremarkable. Pancreas: Unremarkable. Spleen: Unremarkable. Adrenal Glands: Unremarkable. Kidneys and Ureters: No complex renal cystic lesions which require follow-up. No nephrolithiasis. Stomach and Bowel: Stomach, small bowel loops, and colon are unremarkable. Peritoneum: No abnormal intraperitoneal fluid. No free air. Ventral Wall: Wide necked ventral hernia containing fat. Abdominal Nodes: No retroperitoneal or mesenteric adenopathy by size criteria. Vessels: Aorta and inferior vena cava are normal in size. PELVIS: Pelvic Organs: Unremarkable. Bladder: Unremarkable. Pelvic Nodes: No enlarged lymph nodes. Miscellaneous: Diastasis recti or laxity of the anterior abdominal fascia with outpouching at the pelvis. Bones: Arthrodesis of the left sacroiliac joint in the pubic symphysis. IMPRESSION: No findings to explain the patient's fever or sepsis. Cholelithiasis without wall thickening or adjacent fat stranding to suggest acute cholecystitis. Dictated by: Surya Stern M.D. on 06/21/2022 at 7:58 Approved by: Surya Stern M.D. on 06/21/2022 at 8:02
--- NOTE | 2022-06-21 01:54 | DI.CT.S_ITS ---
PROCEDURE: CT ANGIO CHEST PE PROTOCOL INDICATIONS: hypoxia TECHNIQUE: After the administration of intravenous contrast, 2 mm thick sections acquired from the pulmonary apices to the posterior costophrenic angles. 3-dimensional maximum intensity projection (MIP) coronal and sagittal reformats were then acquired through the thorax. For radiation dose reduction, the following was used: automated exposure control, adjustment of mA and/or kV according to patient size. COMPARISON: None. FINDINGS: Image quality: Excellent. Pulmonary arteries: Pulmonary arteries are normal in size, and demonstrate no intraluminal filling defects to suggest central pulmonary embolism. Lungs and pleura: Moderate left-sided pleural effusion with associated atelectasis. Mediastinum: Heart size is normal, without pericardial effusion. No mediastinal or hilar adenopathy. Thoracic aorta is normal in caliber and enhancement. Esophagus is normal in caliber, without hiatal hernia. Bones and chest wall: No suspicious bony lesions. Ribs and thoracic spine appear intact throughout. Thyroid gland contains a 1.8 centimeter nodule. No axillary or supraclavicular adenopathy. Abdomen: Visualized upper abdominal solid organs appear normal in the early arterial phase of enhancement. IMPRESSION: No pulmonary embolus. Moderate left pleural effusion with associated atelectasis. 1.8 centimeter right thyroid nodule. Recommend thyroid ultrasound, if not performed in the past. Agree with preliminary report. Dictated by: Surya Stern M.D. on 06/21/2022 at 7:55 Approved by: Surya Stern M.D. on 06/21/2022 at 7:58
[2022-06-21 01:56] LABS: Adenovirus Not Detected (Not Detect); B. parapertussis Not Detected (Not Detecte); Bordetella pertussis Not Detected (Not Detecte); Chlamydophila pneumoniae Not Detected (Not Detect); Coronavirus 229E Not Detected (Not Detect); Coronavirus HKU1 Not Detected (Not Detect); Coronavirus NL 63 Not Detected (Not Detect); Coronavirus OC43 Not Detected (Not Detect); Human Metapneumovirus Not Detected (Not Detect); Human Rhinovirus/Enterovirus Not Detected (Not Detect); Influenza A Not Detected (Not Detect); Influenza B Not Detected (Not Detect); Parainfluenza Virus 1 Not Detected (Not Detect); Parainfluenza Virus 2 Not Detected (Not Detect); Parainfluenza Virus 3 Not Detected (Not Detect); Parainfluenza Virus 4 Not Detected (Not Detect); Respiratory Syncytial Virus Not Detected (Not Detect); SARS- CoV-2 Not Detected (Not Detecte)
[2022-06-21 01:57] LABS: Mycoplasma pneumoniae Not Detected (Not Detect)
[2022-06-21 02:59] LABS: Reflexed Lactate in 2 Hours Y
[2022-06-21 03:11] LABS: Lactate 2HR (Lactic Acid Rflx) 2.6 mmol/L (0.7-2.1)
[2022-06-21] MEDS: SODIUM CHLORIDE 0.9% 1,000 ML 100 ML IV (03:18)
[2022-06-21 05:45] LABS: pH ABG 7.41 (7.35-7.45)
[2022-06-21 05:46] LABS: Fractionated Inspired Oxygen 100; HCO3 ABG 29 mmol/L (23-27); Oxygen Saturation ABG 100 % (95-100); PCO2 ABG 45.2 mmHg (35-45); PO2 ABG 292 mmHg (80-100); TCO2 ABG 30 mmol/L (23-27)
--- NOTE | 2022-06-21 05:48 | P.HP_ITS ---
History of Present Illness History of Present Illness Date Patient Seen: 06/21/22 Time Patient Seen: 05:30 Chief complaint: generalized weakness Narrative: Mr. Lema is a 76M with PMH HTN, HL, chronic pain who presents to the hospital with confusion. He has family at bedside who provides history. She states he has not been feeling well since Saturday, which is now 5 days ago. He had some left sided back pain. He had some mild wheezing that she had noted. No cough or fevers. Today he started becoming a little confused. She returned from work and he was very confused and breathing had worsened so EMS was called. They noted he was short of breath, and hypoxic and very confused. She notes she had been sick a couple weeks ago. In the ED workup was done, vitals notable for T 102.3, heart rate 100s-110s, respiratory rate 20s-40s. O2 sats initially in the 80s. He was placed on BIPAP in the ED. Labs reviewed and noted WBC 18.7, hgb 12.8, plts 358. Na 137, crea tinine 1.09. BNP 192. Respiratory panel negative. Lactate 3.5->2.6. trop negative. Procal 0.10. UA negative for bacteria, leuk esterase, wbcs, nitrates. Chest xray reviewed by me and noted for left pleural effusion and consolidation. CTA chest reviewed by me and notable for left sided pleural effusion and consolidation. CT abdomen with no acute process. He was initially ordered for nebs and lasix, once sepsis was identified he was ordered for IV fluids and antibiotics. He was admitted for further treatment. FORMERLY [facility], [facility] Medical History Actinic keratoses Actinic keratosis (Unknown) Arthritis (Unknown) Basal cell carcinoma (Unknown) Chronic low back pain Fractures (Unknown) GERD (gastroesophageal reflux disease) (Unknown) Hearing loss (Unknown) Hyperlipemia (Unknown) Hypertension (Unknown) Hypogonadism Kidney stones (Unknown) Melanoma (2016) Obstructive sleep apnea Psoriasis (Unknown) Squamous cell carcinoma (Unknown) Surgical History History of cystoscopy Hx of hernia repair (2016) Status post colostomy Family History Mother Heart disease Hypertension Stroke [place] (myocardial infarction) Sister Hypertension Social History household members: significant other Smoking Status: Current some day smoker Tobacco: How many years used: 14 quit status: has quit before second hand exposure: Yes (childhood) alcohol intake: current substance use type: does not use Meds Home Medications and Allergies Home Medications Medication Instructions Recorded Confirmed Type MULTIVITAMIN (One Daily 1 tab PO Q DAY ##0 01/02/11 12/22/21 History Multivitamin) coenzyme Q10 30 mg capsule (CoQ-10) 30 mg PO DAILY 09/20/17 12/22/21 History amlodipine 5 mg tablet 5 mg PO DAILY #90 tabs 06/16/21 12/22/21 Rx atorvastatin 20 mg tablet 20 mg PO DAILY #90 tabs 09/14/21 12/22/21 Rx lisinopril 20 mg tablet 20 mg PO BID #180 tabs 09/14/21 12/22/21 Rx metoprolol succinate 50 mg 50 mg PO QDAY #90 tabs 09/14/21 12/22/21 Rx tablet,extended release 24 hr (Toprol XL) gabapentin 300 mg capsule 900 mg PO TID #810 caps 11/20/21 12/22/21 Rx (Neurontin) paroxetine HCl 20 mg tablet See Rx Instructions .Route 04/09/22 Rx .COMPLEX #90 tabs oxycodone-acetaminophen 10 mg-325 1 tab PO Q6HP PRN pain #120 tabs 05/23/22 Rx mg tablet Allergies Allergy/AdvReac Type Severity Reaction Status Date / Time No Known Drug Allergies Allergy Verified 12/22/21 13:37 Review of Systems Review of Systems Narrative: 14 systems reviewed and negative aside from what is noted in HPI Exam Vital Signs (past 8 hours): - 06/21/22 00:43 06/21/22 01:03 06/21/22 00:51 Temperature 102.3 F H 102.3 F H Pulse Rate 112 H 105 H Respiratory Rate 24 32 H Blood Pressure 135/85 Pulse Oximetry 97 100 Oxygen Delivery Method Nasal Cannula Oxygen Flow Rate 7 Fraction of Inspired Oxygen 06/21/22 01:46 06/21/22 01:00 06/21/22 01:14 Temperature 104 F H 102.4 F H Pulse Rate 104 H 107 H Respiratory Rate 40 H 43 H Blood Pressure Pulse Oximetry 100 99 Oxygen Delivery Method BiPAP Oxygen Flow Rate Fraction of Inspired Oxygen 06/21/22 01:14 06/21/22 01:30 06/21/22 01:31 Temperature 103.8 F H 104.0 F H Pulse Rate 103 H 103 H Respiratory Rate 30 H 52 H Blood Pressure 130/77 Pulse Oximetry 99 99 Oxygen Delivery Method BiPAP BiPAP Oxygen Flow Rate Fraction of Inspired Oxygen 06/21/22 01:31 06/21/22 01:54 06/21/22 02:00 Temperature 104.0 F H Pulse Rate Respiratory Rate Blood Pressure 95/57 L 100/61 Pulse Oximetry Oxygen Delivery Method Oxygen Flow Rate Fraction of Inspired Oxygen 06/21/22 02:00 06/21/22 02:38 06/21/22 02:30 Temperature 103.5 F H 102.0 F H 102.4 F H Pulse Rate 92 H 91 H Respiratory Rate 31 H 43 H Blood Pressure Pulse Oximetry 98 99 Oxygen Delivery Method BiPAP BiPAP Oxygen Flow Rate Fraction of Inspired Oxygen 06/21/22 02:42 06/21/22 02:42 06/21/22 03:00 Temperature 101.8 F H Pulse Rate 90 Respiratory Rate 23 Blood Pressure 131/66 129/62 Pulse Oximetry 88 L Oxygen Delivery Method Room Air Oxygen Flow Rate Fraction of Inspired Oxygen 06/21/22 03:00 06/21/22 03:30 06/21/22 03:31 Temperature 101.3 F H 100.8 F H Pulse Rate 85 80 Respiratory Rate 22 14 Blood Pressure 120/56 L Pulse Oximetry 94 96 Oxygen Delivery Method Nasal Cannula Oxygen Flow Rate 3 4 Fraction of Inspired Oxygen 06/21/22 03:31 06/21/22 00:30 06/21/22 01:30 Temperature 100.6 F H Pulse Rate 81 Respiratory Rate 17 Blood Pressure Pulse Oximetry 95 Oxygen Delivery Method Nasal Cannula Oxygen Flow Rate 5 Fraction of Inspired Oxygen 100 85 06/21/22 04:00 06/21/22 04:01 06/21/22 04:01 Temperature 100.6 F H 100.6 F H Pulse Rate 79 79 Respiratory Rate 20 25 H Blood Pressure 140/84 Pulse Oximetry 92 94 Oxygen Delivery Method Nasal Cannula Nasal Cannula Oxygen Flow Rate 5 Fraction of Inspired Oxygen 06/21/22 03:35 06/21/22 04:10 06/21/22 04:26 Temperature 97.2 F L Pulse Rate 78 Respiratory Rate 17 Blood Pressure 99/46 L Pulse Oximetry 96 94 Oxygen Delivery Method Nasal Cannula Nasal Cannula Oxygen Flow Rate 5 3 Fraction of Inspired Oxygen 06/21/22 05:00 Temperature Pulse Rate Respiratory Rate Blood Pressure Pulse Oximetry 92 Oxygen Delivery Method Nasal Cannula Oxygen Flow Rate 5 Fraction of Inspired Oxygen Fraction of Inspired Oxygen 85 Oxygen Delivery Method Nasal Cannula Oxygen Flow Rate 5 Narrative Exam Narrative: GEN: sleepy, confused HEENT: moist mucous membranes, PERRL NECK: trachea midline, no jvd PULM: left sided base decreased breath sounds, coarse left sided breath sounds CV: regular rate and rhythm, no murmurs ABD: soft, nontender, nondistended, no organomegaly, normal bowel sounds EXT: warm and well perfused with no edema NEURO: no focal deficits noted, confused Objective Labs 06/21/22 00:52 06/21/22 00:52 Labs: Laboratory Results - last 24 hr 06/21/22 06/21/22 06/21/22 00:50 00:52 00:52 WBC 18.7 H RBC 4.59 Hgb 12.8 L Hct 38.2 L MCV 83.3 MCH 27.8 MCHC 33.4 RDW 12.8 Plt Count 358 Neut % (Auto) 73.0 Lymph % (Auto) 20.8 L Garza % (Auto) 4.7 Eos % (Auto) 1.2 L Baso % (Auto) 0.3 Neut # (Auto) 77361 H Lymph # (Auto) 3900 Garza # (Auto) 900 Eos # (Auto) 200 Baso # (Auto) 100 PT INR APTT ABG pH ABG pCO2 ABG pO2 ABG HCO3 ABG Total CO2 ABG O2 Saturation ABG Base Excess FiO2 Sodium Potassium Chloride Carbon Dioxide BUN Creatinine Estimated GFR BUN/Creatinine Ratio Glucose Lactate Calcium Total Bilirubin AST ALT Alkaline Phosphatase Total Creatine Kinase CK-MB (CK-2) CK-MB (CK-2) Rel Index Troponin I NT-Pro-B Natriuret Pep Cancelled Total Protein Albumin Globulin Albumin/Globulin Ratio Procalcitonin Urine Color Urine Appearance Urine pH Ur Specific [place] Urine Protein Urine Glucose (UA) Urine Ketones Urine Occult Blood Urine Nitrate Urine Bilirubin Ur Bilirubin Confirm Urine Urobilinogen Ur Leukocyte Esterase Urine RBC Urine WBC Calcium Oxalate Crystal Urine Bacteria Urine Mucus Ur Culture Indicated? Chlamy pneumoniae PCR Not detected Adenovirus (PCR) Not detected B. pertussis DNA (PCR) Not detected B.parapertussis DNA PCR Not detected Coronavirus OC43 (PCR) Not detected Coronavirus HKU1 (PCR) Not detected Coronavirus 229E (PCR) Not detected SARS-CoV-2 (PCR) Not detected Coronavirus NL63 (PCR) Not detected Human Metapneumovir PCR Not detected Influenza Type A (PCR) Not detected Influenza Type B (PCR) Not detected M. pneumoniae (PCR) Not detected Parainfluenza 1 (PCR) Not detected Parainfluenza 2 (PCR) Not detected Parainfluenza 3 (PCR) Not detected Parainfluenza 4 (PCR) Not detected RSV (PCR) Not detected Entero/Rhino (PCR) Not detected 06/21/22 06/21/22 06/21/22 00:52 00:52 00:52 WBC RBC Hgb Hct MCV MCH MCHC RDW Plt Count Neut % (Auto) Lymph % (Auto) Garza % (Auto) Eos % (Auto) Baso % (Auto) Neut # (Auto) Lymph # (Auto) Garza # (Auto) Eos # (Auto) Baso # (Auto) PT 13.3 H INR 1.2 APTT 26 ABG pH ABG pCO2 ABG pO2 ABG HCO3 ABG Total CO2 ABG O2 Saturation ABG Base Excess FiO2 Sodium 137 Potassium 3.5 Chloride 96 L Carbon Dioxide 30 BUN 17 Creatinine 1.09 Estimated GFR > 60 BUN/Creatinine Ratio 15.6 Glucose 175 H Lactate 3.5 H Calcium 8.1 L Total Bilirubin 0.7 AST 24 ALT 21 Alkaline Phosphatase 101 Total Creatine Kinase 57 CK-MB (CK-2) TNP CK-MB (CK-2) Rel Index TNP Troponin I < 0.012 NT-Pro-B Natriuret Pep Total Protein 7.5 Albumin 3.9 Globulin 3.6 Albumin/Globulin Ratio 1.1 Procalcitonin 0.10 Urine Color Urine Appearance Urine pH Ur Specific [place] Urine Protein Urine Glucose (UA) Urine Ketones Urine Occult Blood Urine Nitrate Urine Bilirubin Ur Bilirubin Confirm Urine Urobilinogen Ur Leukocyte Esterase Urine RBC Urine WBC Calcium Oxalate Crystal Urine Bacteria Urine Mucus Ur Culture Indicated? Chlamy pneumoniae PCR Adenovirus (PCR) B. pertussis DNA (PCR) B.parapertussis DNA PCR Coronavirus OC43 (PCR) Coronavirus HKU1 (PCR) Coronavirus 229E (PCR) SARS-CoV-2 (PCR) Coronavirus NL63 (PCR) Human Metapneumovir PCR Influenza Type A (PCR) Influenza Type B (PCR) M. pneumoniae (PCR) Parainfluenza 1 (PCR) Parainfluenza 2 (PCR) Parainfluenza 3 (PCR) Parainfluenza 4 (PCR) RSV (PCR) Entero/Rhino (PCR) 06/21/22 06/21/22 06/21/22 01:05 01:50 02:55 WBC RBC Hgb Hct MCV MCH MCHC RDW Plt Count Neut % (Auto) Lymph % (Auto) Garza % (Auto) Eos % (Auto) Baso % (Auto) Neut # (Auto) Lymph # (Auto) Garza # (Auto) Eos # (Auto) Baso # (Auto) PT INR APTT ABG pH 7.41 ABG pCO2 45.2 H ABG pO2 292 H* ABG HCO3 29 H ABG Total CO2 30 H ABG O2 Saturation 100 ABG Base Excess 4.0 H FiO2 100 Sodium Potassium Chloride Carbon Dioxide BUN Creatinine Estimated GFR BUN/Creatinine Ratio Glucose Lactate 2.6 H Calcium Total Bilirubin AST ALT Alkaline Phosphatase Total Creatine Kinase CK-MB (CK-2) CK-MB (CK-2) Rel Index Troponin I NT-Pro-B Natriuret Pep Total Protein Albumin Globulin Albumin/Globulin Ratio Procalcitonin Urine Color Yellow Urine Appearance Clear Urine pH 6.0 Ur Specific [place]lysses 1.020 Urine Protein 2+ H Urine Glucose (UA) Negative Urine Ketones Trace H Urine Occult Blood Negative Urine Nitrate Negative Urine Bilirubin 1+ H Ur Bilirubin Confirm Negative Urine Urobilinogen 1.0 Ur Leukocyte Esterase Negative Urine RBC None seen Urine WBC None seen Calcium Oxalate Crystal Few H Urine Bacteria None seen Urine Mucus 1+ H Ur Culture Indicated? Cult not indicated Chlamy pneumoniae PCR Adenovirus (PCR) B. pertussis DNA (PCR) B.parapertussis DNA PCR Coronavirus OC43 (PCR) Coronavirus HKU1 (PCR) Coronavirus 229E (PCR) SARS-CoV-2 (PCR) Coronavirus NL63 (PCR) Human Metapneumovir PCR Influenza Type A (PCR) Influenza Type B (PCR) M. pneumoniae (PCR) Parainfluenza 1 (PCR) Parainfluenza 2 (PCR) Parainfluenza 3 (PCR) Parainfluenza 4 (PCR) RSV (PCR) Entero/Rhino (PCR) Assessment & Plan Assessment & Plan narrative: 1. Acute hypoxemic respiratory failure and sepsis secondary to pneumonia causing acute encephalopathy -initially with fevers to 104, wbc 18, tachypneic -initial lactate 3.5 improved to 2.6 after beginning treatment -encephalopathy improved with antibiotics and fluids -chest imaging shows left sided pneumonia and pleural effusion -consider attempt to do thora on left sided effusion -follow up cultures -ordered sputum culture -check mrsa swab -for now antibiotics with vanc, cefepime, azithromycin -initially required bipap, weaned down to nasal cannula oxygen -MaP goal >65 2. Hypertension -hold antihypertensives due to sepsis 3. Hyperlipidemia -hold oral meds due to encephalopathy 4. Splenic artery aneurysm -incidentally noted on CT -follow up with PCP for surveillance I have discussed plan and obtained history from patient and partner. I have discussed plan of care with ED physician and bedside nurse. I have reviewed labs, chest xray, CT imaging. CODE: Full Proxy: Zaki Herndon, life partner Quality VTE Deep Vein Thrombosis/Pulmonary Embolism Present on Admission: No MIPS - Meds 'Current medications' to include all prescriptions, [id number] products, herbals, cannabis/cannabidiol products, and vitamin/mineral/dietary (nut ritional) supplements. I have utilized all available resources to obtain, update, or review the patient?s current medications. [If Yes, STOP here]: Yes
[2022-06-21] MEDS: AZITHROMYCIN 500 MG in DEXTROSE 5% IN WATER 250 ML 250 MG IV (06:28)
[2022-06-21 06:57] LABS: Eosinophils Absolute Auto 0 /uL (0-450); Eosinophils Percent Auto 0.1 % (2-4); Monocytes Absolute Auto 700 /uL (0-900); Monocytes Percent Auto 6.2 % (3-14)
[2022-06-21 06:59] LABS: Lactate (Lactic Acid) 1.9 mmol/L (0.7-2.1)
[2022-06-21 07:27] LABS: Add Manual Diff / Slide Review NO; Basophils Absolute Auto 0 /uL (0-100); Basophils Percent Auto 0.4 % (0-2); Hematocrit 32.8 % (41-53); Lymphocytes Absolute Auto 1000 /uL (1100-4500); Lymphocytes Percent Auto 8.3 % (25-40); Mean Corpuscular HGB Conc 33.4 % (30-36); Mean Corpuscular Hemoglobin 27.7 PG (26-34); Mean Corpuscular Volume 82.9 fL (80-100); Neutrophils Absolute Auto 10100 /uL (1500-7000); Platelet Count 254 X10^3/uL (150-400); Red Blood Cell Count 3.95 X10^6/uL (4.5-5.9); Red Cell Distribution Width 12.9 % (11.6-14.8); White Blood Cell Count 11.8 X10^3/uL (4.5-11.0)
[2022-06-21 07:50] LABS: Alanine Aminotransferase 17 IU/L (<50); Albumin 3.2 g/dL (3.5-5.0); Alkaline Phosphatase 82 U/L (38-126); Aspartate Aminotransferase 22 IU/L (17-59); BUN Creatinine Ratio 13.3 (6-22); Bilirubin Total 0.5 mg/dL (0.2-1.3); Blood Urea Nitrogen 16 mg/dL (9-20); Calcium 7.3 mg/dL (8.4-10.2); Carbon Dioxide 30 mmol/L (22-32); Chloride 100 mmol/L (98-107); Estimated Glomerular Filt Rate > 60 mL/min (>60); Globulin 3.2 g/dL (1.7-4.1); Glucose 155 mg/dL (80-110); HEMOLYSIS < 15 (0-50); Potassium 3.4 mmol/L (3.4-5.1); Sodium 137 mmol/L (137-145); Total Protein 6.4 g/dL (6.3-8.2)
[2022-06-21 07:53] LABS: MRSA (Nasal) PCR Not Detected (Not Detect)
[2022-06-21] MEDS: CEFEPIME 2 GM in SODIUM CHLORIDE 0.9% 100 ML IV ×2 (09:14→20:11)
[2022-06-21] MEDS: ENOXAPARIN 40 MG/0.4 ML SYRINGE SUBCUT (09:16)
--- NOTE | 2022-06-21 15:02 | CM.DANOTE ---
Initial DCP Assessment Note 76 yo M resident [facility], arrives w/weakness and admitted for management of Acute hypoxemic respiratory failure and sepsis secondary to pneumonia causing acute encephalopathy PCP Joshua Dumont [facility] Reviewed chart. Attempted bedside visit this morning and patient sleeping very soundly. PLOF unknown. Will attempt assessment again tomorrow Anticipate patient will return home w/SO, r/o need for HH, close outpatient follow up recommended PETER Discharge Planning/Care Management CM Discharge Assessment Start: 06/21/22 14:57 Freq: Status: Active Protocol: Document 06/21/22 14:57 PETER (Rec: 06/21/22 15:02 PETER [id number]) Discharge Planning Assessment Assigned Marketing Performance Analyst JOHNSON Small DPOA/Assigned Designee Name JENNY Torres Contact Information [phone], Advance Directives? No History Provided By Patient,Medical Record Prior Living Arrangements House Household Members significant other Type of transporation used prior to Drives own vehicle admit Independent with ADL's Yes Is patient alert and oriented? Yes Barriers to Discharge No Comment Anticipate return home w/SO once medically cleared. Discharge Plan Home Transportation Arrangement Family Referrals Initiated None needed Additional Comment following closely
--- NOTE | 2022-06-21 18:26 | PC.NURSE ---
HEART RATE 150s-160s INFORMED
[2022-06-21 19:01] LABS: Add Manual Diff / Slide Review NO; Basophils Absolute Auto 100 /uL (0-100); Basophils Percent Auto 0.5 % (0-2); Eosinophils Absolute Auto 0 /uL (0-450); Eosinophils Percent Auto 0.1 % (2-4); Hemoglobin 12.1 g/dL (13.5-17.5); Lymphocytes Absolute Auto 700 /uL (1100-4500); Lymphocytes Percent Auto 5.1 % (25-40); Mean Corpuscular HGB Conc 33.6 % (30-36); Mean Corpuscular Hemoglobin 27.6 PG (26-34); Mean Corpuscular Volume 82.1 fL (80-100); Monocytes Absolute Auto 600 /uL (0-900); Monocytes Percent Auto 4.1 % (3-14); Neutrophils Absolute Auto 12600 /uL (1500-7000); Neutrophils Percent Auto 90.2 % (50-75); Platelet Count 284 X10^3/uL (150-400); Red Blood Cell Count 4.38 X10^6/uL (4.5-5.9); Red Cell Distribution Width 13.3 % (11.6-14.8); White Blood Cell Count 13.9 X10^3/uL (4.5-11.0)
--- NOTE | 2022-06-21 19:02 | DI.RAD.S_ITS ---
PROCEDURE: XR CHEST 1V INDICATIONS: change in pleural effusion TECHNIQUE: One view of the chest was acquired. COMPARISON: [facility], , XR CHEST 1V, 06/21/2022, 1:00. FINDINGS: Lungs and pleura: Lung volumes are low. Small left pleural effusion and left basilar opacities are not substantially changed. No definite pneumothorax. Mediastinum: Mediastinal and hilar contours appear similar to before. Bones and chest wall: No suspicious bony lesions. Overlying soft tissues appear unremarkable. IMPRESSION: Similar small left pleural effusion and nonspecific left basilar opacities. Dictated by: Rakesh Conway M.D. on 06/21/2022 at 19:37 Approved by: Rakesh Conway M.D. on 06/21/2022 at 19:38
[2022-06-21 19:16] LABS: Lactate (Lactic Acid) 1.4 mmol/L (0.7-2.1)
[2022-06-21 19:17] LABS: Alanine Aminotransferase 17 IU/L (<50); Albumin 3.6 g/dL (3.5-5.0); Albumin Globulin Ratio 1.1 (1.0-2.8); Alkaline Phosphatase 95 U/L (38-126); Aspartate Aminotransferase 22 IU/L (17-59); BUN Creatinine Ratio 14.3 (6-22); Bilirubin Total 0.9 mg/dL (0.2-1.3); Blood Urea Nitrogen 15 mg/dL (9-20); Calcium 7.7 mg/dL (8.4-10.2); Carbon Dioxide 28 mmol/L (22-32); Chloride 100 mmol/L (98-107); Estimated Glomerular Filt Rate > 60 mL/min (>60); Globulin 3.4 g/dL (1.7-4.1); Glucose 150 mg/dL (80-110); HEMOLYSIS < 15 (0-50); Potassium 3.1 mmol/L (3.4-5.1); Sodium 137 mmol/L (137-145)
--- NOTE | 2022-06-21 19:31 | DI.ECHO.S_ITS ---
[facility] +---------+ : : [address] : : : : [place], : : : : [place] [address] : : : : Phone: [phone] + [facility] Echocardiogram Report + + :Name: GORAN VILLA Study Date: 06/24/2022 Height: 72 in : :[facility] ReadingLocation: Weight: 273 lb: : Gender: Male BSA: 2.4 m2 : :: 1945 Age: 76 yrs : :Reason For Study: AFIB : : Performed By: Tamanna Villafana : + + Interpretation Summary This is a technically difficult study characterized by limited endocardial visualization. Next time I recommend [employer] echocontrast. Normal sinus rhythm. Normal LV size and wall thickness; normal wall motion and LV systolic function. EF is 60-65%. Normal chamber sizes. No significant valvular abnormalities. Compared to prior study 09/27/2016, no changes have occurred. Procedure: A two-dimensional transthoracic echocardiogram with color flow and Doppler was performed. The study quality was technically difficult. All windows are suboptimal in quality. The patient was in normal sinus rhythm during the exam. Left Ventricle: The left ventricle is grossly normal size. The ejection fraction is estimated to be 65-70%. Right Ventricle: The right ventricle is normal in size and function. Atria: The left atrial size is normal. The right atrium grossly appears normal in size. There is no Doppler evidence for an interatrial shunt. Mitral Valve: The mitral valve is grossly normal. Aortic Valve: The aortic valve is trileaflet. There is mild aortic valve sclerosis. There is trace aortic regurgitation. Tricuspid Valve: The tricuspid valve is not well visualized. Pulmonic Valve: The pulmonic valve is not well visualized. Great Vessels: The aortic root is borderline dilated. The ascending aorta is normal in size. The aortic arch could not be visualized. The pulmonary is not well visualized. The inferior vena cava was not well visualized. Pericardium/ Pleura There is no pericardial effusion. There is no pleural effusion. MMode/2D Measurements & Calculations Ao root diam: 4.2 cm LA A2 area: 12.7 cm2 asc Aorta Diam: 4.1 cm LA A4 area: 18.9 cm2 LA length (vol): 6.0 cm LA vol: 33.8 ml LA vol index: 13.9 ml/m2 RVD1 (basal): 3.5 cm Doppler Measurements & Calculations Ao V2 max: 157.4 cm/sec LVOT Max Lee: 131.8 cm/sec Ao V2 mean: 108.5 cm/sec LV V1 max P.9 mmHg Ao V2 VTI: 28.3 cm LV V1 VTI: 26.7 cm Ao max P.9 mmHg Ao mean P.1 mmHg sev ratio: 0.94 MV E max lee: 47.4 cm/sec MV A max lee: 72.4 cm/sec MV E/A: 0.65 Med Peak E' Lee: 4.9 cm/sec E/E' med: 9.6 Lat Peak E' Lee: 7.0 cm/sec E/E' lat: 6.8 E/e' average: 8.2 MV P1/2t: 79.5 msec MVA(P1/2t): 2.8 cm2 Electronically signed by: Mallory Saunders M.D. on Reading Physician:06/24/2022 05:44 PM
[2022-06-21] MEDS: METOPROLOL TARTRATE 5 MG/5 ML INJ IV (19:43)
[2022-06-21] MEDS: METOPROLOL IR 25 MG TABLET PO (20:06)
[2022-06-21 20:25] LABS: NT-proBNP (BNP-Adult 18+) 328 pg/mL (<450)
[2022-06-21] MEDS: POTASSIUM CHLORIDE 20 MEQ/15 ML UDC 40 MEQ PO (20:25)
[2022-06-21] MEDS: MAGNESIUM SULFATE 4 GM/100 ML PIGGYBACK IV (21:43)
[2022-06-21] MEDS: POTASSIUM CHLORIDE 20 MEQ TAB 40 MEQ PO (21:48)
[2022-06-22] VITALS (11 sets, daily range): BP systolic 159–184; BP diastolic 78–94; PULSE 75–88; RESP 16–20; TEMP 36–38.2; O2SAT 94–97
--- NOTE | 2022-06-22 | DI.US.S_ITS ---
PROCEDURE: US ABDOMEN LIMITED INDICATIONS: PLEURAL EFFUSION ?THORACENTESIS TECHNIQUE: Real-time scanning was performed of the abdomen, with image documentation. COMPARISON: None. FINDINGS: Trace left pleural fluid. IMPRESSION: Trace left pleural fluid. Thoracentesis would be challenging. Dictated by: Surya Stern M.D. on 06/22/2022 at 10:30 Approved by: Surya Stern M.D. on 06/22/2022 at 10:32
[2022-06-22] MEDS: AZITHROMYCIN 500 MG in DEXTROSE 5% IN WATER 250 ML 250 MG IV (04:09)
--- NOTE | 2022-06-22 07:51 | PM.PN.1 ---
Subjective Subjective Interval history: Patient says his left chest hurts with deep breaths. Otherwise he has no complaints and says his breathing is fine. Still on 7L NC. Exam Vital Signs (past 8 hours): - 06/22/22 03:20 06/22/22 01:00 06/22/22 05:00 Temperature 96.8 F L Pulse Rate 78 Respiratory Rate 16 Blood Pressure 159/83 H Pulse Oximetry 96 97 96 Oxygen Delivery Method Oximask Oximask Oxygen Flow Rate 7 7 7 Fraction of Inspired Oxygen 40 SaO2/FiO2 Ratio 232 Oxygen Delivery Method Oximask Oxygen Flow Rate 7 Narrative Exam Narrative: GEN: NAD, alert and awake HEENT: moist mucous membranes, PERRL NECK: trachea midline, no jvd PULM: left sided base decreased breath sounds, coarse left sided breath sounds CV: regular rate and rhythm, no murmurs ABD: soft, nontender, nondistended, no organomegaly, normal bowel sounds EXT: warm and well perfused with no edema NEURO: no focal deficits Objective Labs 06/21/22 18:46 06/21/22 18:46 Labs: Laboratory Results - last 24 hr 06/21/22 06/21/22 06/21/22 06:40 06:40 18:46 WBC 13.9 H RBC 4.38 L Hgb 12.1 L Hct 36.0 L MCV 82.1 MCH 27.6 MCHC 33.6 RDW 13.3 Plt Count 284 Neut % (Auto) 90.2 H Lymph % (Auto) 5.1 L [place] % (Auto) 4.1 Eos % (Auto) 0.1 L Baso % (Auto) 0.5 Neut # (Auto) 56736 H Lymph # (Auto) 700 L [place] # (Auto) 600 Eos # (Auto) 0 Baso # (Auto) 100 Sodium 137 Potassium 3.4 Chloride 100 Carbon Dioxide 30 BUN 16 Creatinine 1.20 Estimated GFR > 60 BUN/Creatinine Ratio 13.3 Glucose 155 H Lactate Calcium 7.3 L Magnesium Total Bilirubin 0.5 AST 22 ALT 17 Alkaline Phosphatase 82 NT-Pro-B Natriuret Pep Total Protein 6.4 Albumin 3.2 L Globulin 3.2 Albumin/Globulin Ratio 1.0 Procalcitonin Nasal Screen MRSA (PCR) Not detected 06/21/22 06/21/22 06/21/22 18:46 18:46 18:46 WBC RBC Hgb Hct MCV MCH MCHC RDW Plt Count Neut % (Auto) Lymph % (Auto) [place] % (Auto) Eos % (Auto) Baso % (Auto) Neut # (Auto) Lymph # (Auto) [place] # (Auto) Eos # (Auto) Baso # (Auto) Sodium 137 Potassium 3.1 L Chloride 100 Carbon Dioxide 28 BUN 15 Creatinine 1.05 Estimated GFR > 60 BUN/Creatinine Ratio 14.3 Glucose 150 H Lactate 1.4 Calcium 7.7 L Magnesium 1.0 L Total Bilirubin 0.9 AST 22 ALT 17 Alkaline Phosphatase 95 NT-Pro-B Natriuret Pep Total Protein 7.0 Albumin 3.6 Globulin 3.4 Albumin/Globulin Ratio 1.1 Procalcitonin 2.90 H Nasal Screen MRSA (PCR) 06/21/22 18:46 WBC RBC Hgb Hct MCV MCH MCHC RDW Plt Count Neut % (Auto) Lymph % (Auto) [place] % (Auto) Eos % (Auto) Baso % (Auto) Neut # (Auto) Lymph # (Auto) [place] # (Auto) Eos # (Auto) Baso # (Auto) Sodium Potassium Chloride Carbon Dioxide BUN Creatinine Estimated GFR BUN/Creatinine Ratio Glucose Lactate Calcium Magnesium Total Bilirubin AST ALT Alkaline Phosphatase NT-Pro-B Natriuret Pep 328 Total Protein Albumin Globulin Albumin/Globulin Ratio Procalcitonin Nasal Screen MRSA (PCR) [facility] Medical History Actinic keratoses Actinic keratosis (Unknown) Arthritis (Unknown) Basal cell carcinoma (Unknown) Chronic low back pain Fractures (Unknown) GERD (gastroesophageal reflux disease) (Unknown) Hearing loss (Unknown) Hyperlipemia (Unknown) Hypertension (Unknown) Hypogonadism Kidney stones (Unknown) Melanoma (2016) Obstructive sleep apnea Psoriasis (Unknown) Squamous cell carcinoma (Unknown) Surgical History History of cystoscopy Hx of hernia repair (2016) Status post colostomy Family History Mother Heart disease Hypertension Stroke [place] (myocardial infarction) Sister Hypertension Social History household members: significant other Smoking Status: Current some day smoker Tobacco: How many years used: 14 quit status: has quit before second hand exposure: Yes (childhood) alcohol intake: current substance use type: does not use Assessment & Plan Assessment & Plan narrative: # Acute hypoxemic respiratory failure and sepsis secondary to pneumonia, causing acute encephalopathy which was now resolved -initially with fevers to 104, wbc 18, tachypneic -initial lactate 3.5 improved to 1.4 -encephalopathy improved with antibiotics and fluids -chest imaging shows left sided pneumonia and pleural effusion -US pleural showed trace effusion, not enough to perform thora -blood cultured NG at 24 hours -ordered sputum culture but not collected yet -mrsa swab negative, stopped vanc -for now antibiotics with cefepime, azithromycin -initially required bipap, weaned down to nasal cannula oxygen # New-onset A-fib RVR -on 06/21 went into rapid A-fib, confirmed with EKG -A-fib improved with IV push of metoprolol -continue metop 25mg BID, now rate controlled -start eliquis 5mg BID due to [id number] of 3 # Hypertension -restart home BP meds # Hyperlipidemia -continue home lipitor # Splenic artery aneurysm -incidentally noted on CT -spoke with vascular PA at [facility] who said if no abd pain then to monitor, unlikely to rupture at 2.5cm -follow up with PCP for referral to vascular for surveillance CODE: Full Proxy: Zaki Herndon, life partner Dispo: Pending improvement in O2 req. Likely 2-3 days. Quality VTE Deep Vein Thrombosis/Pulmonary Embolism Present on Admission: No
[2022-06-22] MEDS: CEFEPIME 2 GM in SODIUM CHLORIDE 0.9% 100 ML IV ×2 (10:13→21:14)
[2022-06-22] MEDS: ENOXAPARIN 40 MG/0.4 ML SYRINGE SUBCUT (10:13)
[2022-06-22] MEDS: METOPROLOL IR 25 MG TABLET PO (10:13)
[2022-06-22] MEDS: POTASSIUM CHLORIDE 20 MEQ TAB 40 MEQ PO ×2 (11:40→18:02)
[2022-06-22] MEDS: MAGNESIUM CHLORIDE 64 MG TABLET 128 MG PO ×2 (11:40→19:15)
[2022-06-22 15:18] LABS: Add Manual Diff / Slide Review NO; Basophils Absolute Auto 100 /uL (0-100); Basophils Percent Auto 0.5 % (0-2); Eosinophils Absolute Auto 0 /uL (0-450); Hematocrit 33.9 % (41-53); Hemoglobin 11.4 g/dL (13.5-17.5); Lymphocytes Absolute Auto 900 /uL (1100-4500); Lymphocytes Percent Auto 5.1 % (25-40); Mean Corpuscular HGB Conc 33.7 % (30-36); Mean Corpuscular Hemoglobin 27.6 PG (26-34); Monocytes Absolute Auto 700 /uL (0-900); Monocytes Percent Auto 4.2 % (3-14); Neutrophils Absolute Auto 15800 /uL (1500-7000); Neutrophils Percent Auto 90.2 % (50-75); Platelet Count 300 X10^3/uL (150-400); Red Blood Cell Count 4.13 X10^6/uL (4.5-5.9); Red Cell Distribution Width 13.3 % (11.6-14.8); White Blood Cell Count 17.6 X10^3/uL (4.5-11.0)
[2022-06-22] MEDS: APIXABAN 5 MG TABLET PO (15:26)
[2022-06-22] MEDS: AMLODIPINE 5 MG TABLET PO (15:27)
[2022-06-22] MEDS: METOPROLOL ER 50 MG TABLET PO (15:27)
[2022-06-22] MEDS: OXYCODONE IR 10 MG TABLET PO ×2 (15:28→21:13)
[2022-06-22] MEDS: PARoxetine 20 MG TABLET PO (15:28)
[2022-06-22 15:29] LABS: BUN Creatinine Ratio 19.7 (6-22); Blood Urea Nitrogen 14 mg/dL (9-20); Calcium 7.3 mg/dL (8.4-10.2); Carbon Dioxide 30 mmol/L (22-32); Chloride 99 mmol/L (98-107); Estimated Glomerular Filt Rate > 60 mL/min (>60); Glucose 141 mg/dL (80-110); HEMOLYSIS < 15 (0-50); Potassium 3.2 mmol/L (3.4-5.1); Sodium 137 mmol/L (137-145)
[2022-06-22] MEDS: GABAPENTIN 300 MG CAPSULE 900 MG PO ×2 (15:29→21:13)
[2022-06-22 15:36] LABS: Magnesium 1.8 mg/dL (1.6-2.3)
--- NOTE | 2022-06-22 19:13 | DI.CT.S_ITS ---
PROCEDURE: CT CHEST WO CON INDICATIONS: worsening pneumonia despite broad abx TECHNIQUE: Noncontrast 5 mm thick sections acquired from the pulmonary apices to the posterior costophrenic angles. 1 mm lung window, 5 mm thick coronal and sagittal and 7 mm axial MIP reformats were then acquired. For radiation dose reduction, the following was used: automated exposure control, adjustment of mA and/or kV according to patient size. COMPARISON: [facility], CR, XR CHEST 1V, 06/21/2022, 19:01. FINDINGS: Image quality: Excellent. Lower Neck: No lymphadenopathy by size criteria. Thyroid: Visualized thyroid demonstrates no discrete nodules. Axillae: No lymphadenopathy by size criteria. Chest Wall: Unremarkable. Bones: Visualized osseous structures demonstrate no suspicious lesions. Lungs and Airways: There is consolidation within the left lower lobe and left lingula as well as areas of compressive atelectasis. Mild dependent atelectasis is demonstrated. The trachea and central airways are patent. Pleura: No pneumothorax. There is a moderate left pleural effusion with areas of loculation including anteriorly. Heart: Heart size is normal. No pericardial effusion. Thoracic Vessels: The aorta and pulmonary arteries are normal in size. Mediastinum and [place]: No lymphadenopathy by size criteria. Esophagus: No wall thickening. There is a small hiatal hernia. Abdomen: Visualized upper abdomen demonstrates a few gallstones within the partially visualized gallbladder. IMPRESSION: 1. Moderate left pleural effusion with areas of loculation including anteriorly along the left lingula. 2. Left basilar areas of consolidation and compressive atelectasis. Dictated by: Cleveland Saxena M.D. on 06/22/2022 at 21:05 Approved by: Cleveland Saxena M.D. on 06/22/2022 at 21:08
[2022-06-22] MEDS: ATORVASTATIN 20 MG TABLET PO (21:12)
[2022-06-22] MEDS: LOPERAMIDE 2 MG CAPSULE PO (21:12)
[2022-06-22] MEDS: lisinopriL 20 MG TABLET PO (21:12)
[2022-06-22] MEDS: SODIUM CHLORIDE 0.9% FLUSH 10 ML IV ×2 (21:16→22:39)
[2022-06-22] MEDS: SODIUM CHLORIDE 0.9% 250 ML 21 ML IV (21:16)
[2022-06-22] MEDS: metroNIDAZOLE 500 MG/100 ML PIGGYBACK 100 MG IV (22:39)
[2022-06-23] VITALS (28 sets, daily range): BP systolic 89–160; BP diastolic 50–87; PULSE 65–98; RESP 12–30; TEMP 35.5–37.3; O2SAT 92–98; BMI 37.0
[2022-06-23] MEDS: VANCOMYCIN 2,000 MG/400 ML PIGGYBACK 200 MG IV
[2022-06-23] MEDS: MAGNESIUM CHLORIDE 64 MG TABLET 128 MG PO (03:37)
--- NOTE | 2022-06-23 04:42 | PC.NURSE ---
pt was attempting to get out of bed and venegas catheter got stuck on bed and pulled on meatus. Urine is now dark red and there is blood around meatus. Dr. Hoff notified- plans on having catheter changed to 3-way for CBI on dayshift.
[2022-06-23] MEDS: AZITHROMYCIN 500 MG in DEXTROSE 5% IN WATER 250 ML 250 MG IV (05:05)
[2022-06-23 05:28] LABS: Add Manual Diff / Slide Review NO; Basophils Absolute Auto 100 /uL (0-100); Basophils Percent Auto 0.5 % (0-2); Eosinophils Absolute Auto 100 /uL (0-450); Eosinophils Percent Auto 0.3 % (2-4); Hematocrit 36.9 % (41-53); Hemoglobin 12.3 g/dL (13.5-17.5); Lymphocytes Absolute Auto 1400 /uL (1100-4500); Lymphocytes Percent Auto 6.2 % (25-40); Mean Corpuscular HGB Conc 33.2 % (30-36); Mean Corpuscular Hemoglobin 27.6 PG (26-34); Mean Corpuscular Volume 83.1 fL (80-100); Monocytes Absolute Auto 1000 /uL (0-900); Monocytes Percent Auto 4.3 % (3-14); Neutrophils Absolute Auto 19600 /uL (1500-7000); Neutrophils Percent Auto 88.7 % (50-75); Platelet Count 383 X10^3/uL (150-400); Red Blood Cell Count 4.44 X10^6/uL (4.5-5.9); Red Cell Distribution Width 13.4 % (11.6-14.8); White Blood Cell Count 22.1 X10^3/uL (4.5-11.0)
[2022-06-23 05:41] LABS: BUN Creatinine Ratio 12.2 (6-22); Blood Urea Nitrogen 24 mg/dL (9-20); Calcium 7.8 mg/dL (8.4-10.2); Carbon Dioxide 28 mmol/L (22-32); Chloride 103 mmol/L (98-107); Estimated Glomerular Filt Rate 35 mL/min (>60); Glucose 138 mg/dL (80-110); HEMOLYSIS < 15 (0-50); Potassium 4.2 mmol/L (3.4-5.1); Sodium 137 mmol/L (137-145)
[2022-06-23 05:42] LABS: Magnesium 2.1 mg/dL (1.6-2.3)
[2022-06-23 05:58] LABS: Procalcitonin 2.61 ng/mL (<0.5)
[2022-06-23] MEDS: metroNIDAZOLE 500 MG/100 ML PIGGYBACK 100 MG IV ×3 (06:16→22:04)
--- NOTE | 2022-06-23 08:53 | PM.CN ---
History of Present Illness Consult details Date Patient Seen: 06/23/22 Time Patient Seen: 08:53 Chief complaint: generalized weakness Reason for consult: Loculated pleural fluid collection Narrative: Mr. Lema presented to the emergency room because he had some left back pain and was confused. When he was seen by EMS he was found to be hypoxic and in the emergency room was admitted to the hospitalist service and treated for pneumonia he a left-sided pleural effusion noted at the time. An ultrasound was done to see if there was fluid that could be tapped but erroneously did not show much. A CT of the chest was done which revealed a large loculated fluid collection. I was consulted for left chest tube placement. Meds Home Medications and Allergies Home Medications Medication Instructions Recorded Confirmed Type MULTIVITAMIN (One Daily 1 tab PO Q DAY ##0 01/02/11 06/21/22 History Multivitamin) coenzyme Q10 30 mg capsule (CoQ-10) 30 mg PO DAILY 09/20/17 06/21/22 History amlodipine 5 mg tablet 5 mg PO DAILY #90 tabs 06/16/21 06/21/22 Rx atorvastatin 20 mg tablet 20 mg PO DAILY #90 tabs 09/14/21 06/21/22 Rx lisinopril 20 mg tablet 20 mg PO BID #180 tabs 09/14/21 06/21/22 Rx metoprolol succinate 50 mg 50 mg PO QDAY #90 tabs 09/14/21 06/21/22 Rx tablet,extended release 24 hr (Toprol XL) gabapentin 300 mg capsule 900 mg PO TID #810 caps 11/20/21 06/21/22 Rx (Neurontin) paroxetine HCl 20 mg tablet See Rx Instructions .Route 04/09/22 06/21/22 Rx .COMPLEX #90 tabs oxycodone-acetaminophen 10 mg-325 1 tab PO Q6HP PRN pain #120 tabs 05/23/22 06/21/22 Rx mg tablet Allergies Allergy/AdvReac Type Severity Reaction Status Date / Time No Known Drug Allergies Allergy Verified 12/22/21 13:37 Exam Vital Signs (past 8 hours): - 06/23/22 04:00 06/23/22 04:00 06/23/22 08:02 Temperature 99.1 F Pulse Rate 75 Respiratory Rate 30 H Blood Pressure 126/67 Pulse Oximetry 95 95 92 Oxygen Delivery Method Oximask Oximask Oxygen Flow Rate 7 7 7 Fraction of Inspired Oxygen 40 SaO2/FiO2 Ratio 232 Oxygen Delivery Method Oximask Oxygen Flow Rate 7 Const General: cooperative and comfortable Nutritional Appearance: obese Orientation: alert, awake and oriented x3 HENMT Head: normal to inspection Other: Face mask with O2 in place Eyes General: appearance normal, both eyes and all related structures Chest Chest: normal inspection of the chest and normal palpation of entire chest wall Resp Effort & Inspection: able to speak in complete sentences and respiratory distress (Mild. Doing fine on the face mask) Cardio Pulses: radial pulses present GI Palpation: soft and No tender Objective Labs 06/23/22 05:10 06/23/22 05:10 Labs: Laboratory Results - last 24 hr 06/22/22 06/22/22 06/22/22 15:05 15:05 15:05 WBC 17.6 H RBC 4.13 L Hgb 11.4 L Hct 33.9 L MCV 82.0 MCH 27.6 MCHC 33.7 RDW 13.3 Plt Count 300 Neut % (Auto) 90.2 H Lymph % (Auto) 5.1 L [place] % (Auto) 4.2 Eos % (Auto) 0.0 L Baso % (Auto) 0.5 Neut # (Auto) 20075 H Lymph # (Auto) 900 L [place] # (Auto) 700 Eos # (Auto) 0 Baso # (Auto) 100 Sodium 137 Potassium 3.2 L Chloride 99 Carbon Dioxide 30 BUN 14 Creatinine 0.71 Estimated GFR > 60 BUN/Creatinine Ratio 19.7 Glucose 141 H Calcium 7.3 L Magnesium 1.8 Procalcitonin 06/23/22 06/23/22 06/23/22 05:10 05:10 05:10 WBC 22.1 H RBC 4.44 L Hgb 12.3 L Hct 36.9 L MCV 83.1 MCH 27.6 MCHC 33.2 RDW 13.4 Plt Count 383 Neut % (Auto) 88.7 H Lymph % (Auto) 6.2 L [place] % (Auto) 4.3 Eos % (Auto) 0.3 L Baso % (Auto) 0.5 Neut # (Auto) 94897 H Lymph # (Auto) 1400 [place] # (Auto) 1000 H Eos # (Auto) 100 Baso # (Auto) 100 Sodium 137 Potassium 4.2 Chloride 103 Carbon Dioxide 28 BUN 24 H Creatinine 1.96 H Estimated GFR 35 L BUN/Creatinine Ratio 12.2 Glucose 138 H Calcium 7.8 L Magnesium 2.1 Procalcitonin 06/23/22 05:10 WBC RBC Hgb Hct MCV MCH MCHC RDW Plt Count Neut % (Auto) Lymph % (Auto) [place] % (Auto) Eos % (Auto) Baso % (Auto) Neut # (Auto) Lymph # (Auto) [place] # (Auto) Eos # (Auto) Baso # (Auto) Sodium Potassium Chloride Carbon Dioxide BUN Creatinine Estimated GFR BUN/Creatinine Ratio Glucose Calcium Magnesium Procalcitonin 2.61 H [facility] Medical History Actinic keratoses Actinic keratosis (Unknown) Arthritis (Unknown) Basal cell carcinoma (Unknown) Chronic low back pain Fractures (Unknown) GERD (gastroesophageal reflux disease) (Unknown) Hearing loss (Unknown) Hyperlipemia (Unknown) Hypertension (Unknown) Hypogonadism Kidney stones (Unknown) Melanoma (2016) Obstructive sleep apnea Psoriasis (Unknown) Squamous cell carcinoma (Unknown) Surgical History History of cystoscopy Hx of hernia repair (2016) Status post colostomy Family History Mother Heart disease Hypertension Stroke [place] (myocardial infarction) Sister Hypertension Social History household members: significant other Tobacco & Substance Use Smoking Status: Current some day smoker Tobacco: How many years used: 14 quit status: has quit before second hand exposure: Yes (childhood) alcohol intake: current substance use type: does not use Assessment & Plan Assessment and plan (1) Pneumonia: Status: Acute (2) Loculated pleural effusion: Status: Acute Plan I did attempt to contact thoracic surgery at [facility]. I spoke briefly with Dr. Barton and the cardiothoracic surgeon is on vacation and not available for the next week. However I believe that chest tube placement is a good decision given the size of this collection. If it is truly really loculated it is possible that it may not resolve with chest tube drainage alone, but placing the chest tube at this time has the possibility of helping significantly. This patient is continuing to have an O2 requirement and I think that he will make more progress more quickly if that fluid collection can be adequately drained. I discussed the risks and benefits of chest tube placement with the patient who after talking to Dr. Beasley once more has agreed to move forward. Initially he was not sure because he had understood that it was a small fluid collection based on the ultrasound findings. I was able to arrange to have this chest tube placed in the postoperative care unit on monitors with anesthesiologist to provide some sedation. After the chest tube placement if needed tPA 10 mg Q 8 every 48 hours pull Pulmozyme 5 mg Q 8 hours every 2 days as a regimen that Dr. Barton has used to help clear out a loculated fluid collection. We will follow. Assessment & Plan narrative: I am available to place chest tube and am calling the OR team in today for other reasons so they are available for the sake of sedation if needed. Discussed possible chest tube placement with Mr. Lema who is not sure that he would like to proceed. He would like to speak with his ?significant other? before making a decision and she is not available by phone so he would need to discuss this with her in person and she is working today so will not be available today.
[2022-06-23] MEDS: PARoxetine 20 MG TABLET PO (09:11)
[2022-06-23] MEDS: OXYCODONE IR 10 MG TABLET PO (09:11)
[2022-06-23] MEDS: METOPROLOL ER 50 MG TABLET PO ×2 (09:11→20:49)
[2022-06-23] MEDS: lisinopriL 20 MG TABLET PO (09:12)
[2022-06-23] MEDS: GABAPENTIN 300 MG CAPSULE 900 MG PO ×3 (09:12→20:49)
[2022-06-23] MEDS: AMLODIPINE 5 MG TABLET PO (09:12)
[2022-06-23] MEDS: CEFEPIME 2 GM in SODIUM CHLORIDE 0.9% 100 ML IV ×2 (09:20→20:50)
[2022-06-23] MEDS: SODIUM CHLORIDE 0.9% 1,000 ML 100 ML IV ×2 (09:42→11:11)
--- NOTE | 2022-06-23 11:46 | PC.NURSE ---
Day shift: Pt off unit at approx 1145 for procedure.
--- NOTE | 2022-06-23 12:54 | SUR.HOLD ---
Dr. Bruner at bedside with patient. Procedure to be done in PACU with Dr. Graves for sedation.
--- NOTE | 2022-06-23 13:31 | DI.RAD.S_ITS ---
PROCEDURE: XR CHEST 1V INDICATIONS: chest tube placement - PACU TECHNIQUE: One view of the chest was acquired. COMPARISON: [facility], CT, CT CHEST WO CON, 06/22/2022, 19:47. [facility], CR, XR CHEST 1V, 06/21/2022, 19:01. FINDINGS: Surgical changes and devices: A left-sided chest tube is seen inferiorly. Lungs and pleura: On this semiupright study, no large pneumothorax or large pleural effusion can be seen. Low lung volumes are noted. This causes a crowded appearance to the lung markings and limits evaluation. Mediastinum: Mediastinal contours appear normal. Heart size is normal. Bones and chest wall: No suspicious bony lesions. Overlying soft tissues appear unremarkable. IMPRESSION: Left-sided chest tube seen in place. The left-sided pleural effusion is no longer seen on this limited study. Dictated by: Panchito Ham M.D. on 06/23/2022 at 13:30 Approved by: Panchito Ham M.D. on 06/23/2022 at 13:32
--- NOTE | 2022-06-23 13:35 | PM.PROC.1 ---
Procedures Date/Time Date of procedure: 06/23/22 Time of procedure: 13:35 General Procedure description: Left chest tube placement Complications: none Chest Tube Chest Tube Location: Lateral Chest Size of tube: 28 Chest tube procedure: Yes betadine prep (Chlorhexidine) and sterile drapes applied Tube sutured to skin: Yes Sterile dressing applied: Yes Anesthesia: 1% Lidocaine Volume anesthetic (ml): 10 Incision made with: #10 blade Post procedure: sutured to skin Jacobs of air heard: Yes Tube Drainage: fluid Amount of initial drainage (ml): 700 Post procedure CXR?: Yes Patient tolerated procedure well: Yes Progress: Patient was brought to the postoperative care unit and placed on monitors. I discussed with him risks benefits and alternatives of a chest tube placement including but not limited to placement of a smaller tube, doing nothing, and risks including pain or rare possible injury to lung or bleeding. He understood the risks benefits and alternatives and wished to proceed. With the help of Dr. Graves patient had some sedation for the duration of the procedure. The patient remained very comfortable throughout. He was positioned with his left arm above his head and the area was prepped with chlorhexidine. The area was sudden suctioned off with sq sticky drapes. I was wearing a sterile gown and sterile gloves for the procedure. I then injected lidocaine into space between the ribs and injected the lidocaine underneath and in between the ribs and attempted to place some in the pleural lining. Patient tolerated that well and next I took a 10. Blade scalpel and incise the skin. I then used a hemostat to spread down through the subcutaneous tissues and puncture into the pleural. I then switched out for a larger set of forceps to spread the tract out and placed the 28 [place] chest tube into the thoracic cavity. It went in very smoothly and immediately there was straw-colored blood-tinged fluid. A total of 700 cc of this serous fluid came out initially. The chest tube was secured to the skin with a nylon suture. It was then dressed in the usual way with petroleum gauze and covered with 4x4s and tape. Some of the pleural fluid was spent sent for culture. I saw that there was an order for cytology in addition which hopefully will apply to this pleural specimen. Patient tolerated the procedure well and chest x-ray was ordered.
[2022-06-23] MEDS: LIDOCAINE 1% 20 ML 10 ML INJ (13:36)
--- NOTE | 2022-06-23 13:38 | PATH_ITS ---
Note [facility] Accession Number: [id number] TESTS RESULT FLAG UNITS REF RANGE LAB Clinician Provided Cytology Information No. of containers..01 Other (Miscellaneous) Source: PLEURAL FLUID DIAGNOSIS: 01 PLEURAL FLUID NEGATIVE FOR MALIGNANT CELLS. THIS INTERPRETATION INCLUDES EVALUATION OF A CELL BLOCK. Pathologist ICD10: J90 Signed out by: Sarah Richardson MD, Pathologist NPI- [id number] Performed by: Braulio Graves, Vamp Seamer ([facility]) Gross description: 01 5 CC, RED, CLOUDY RECEIVED: FRESH IN ORANGE CAP CONTAINER.VO /VDU 06/26/2022 0615 Local FLAG LEGEND: L-Low Normal,H-High Normal,LL-Alert Low,HH-Alert High <-Panic Low,>-Panic High,A-Abnormal,AA-Critical Abnormal Performed at: 01 =Z [facility] [address] [place] [address] [address], [place] [address] Cleveland Sommer MD, Performed at: 01 [facility] [address], [place], [place] [id number] MD Cleveland Sommer MD Phone: [phone]
--- NOTE | 2022-06-23 14:09 | CM.DPNOTE ---
DCP Note Patient has been sleeping throughout this hospital visit; multiple attempts yesterday to check in with patient were unsuccessful r/t patient's deep sleep According to Dr Beasley, patient's WBC has risen, patient has pneumonia and fluid found within the pleural cavity found to be infected so chest tube will be placed today in the OR CM team will continue to follow closely and will plan to reassess needs closer to DC; patient may benefit from home health upon discharge JW
[2022-06-23] MEDS: MORPHINE 2 MG/ML INJ IV (16:27)
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
[2022-06-23] MEDS: ATORVASTATIN 20 MG TABLET PO (20:49)
--- NOTE | 2022-06-23 23:44 | PC.NURSE ---
Patient is mostly alert and oriented; did not know age, month/day/day of week. [place] IQUA. Breath sounds with expiratory wheezes throughout. Was on oxygen at 1L/min per NC at shift change with sat of 93% but when asleep noted to be dropping into upper 70's as was mouth breathing so placed on oximask and rate increased to 3L/min to keep sat > 90% when sleeping. Patient denies feeling SOB. HRR w/telemetry reading of SR w/BBB. Denies nausea. BT present and abdomen is large but soft. Voided incontinent on previous shift and bladder scan at shift change was 56cc. Rechecked bladder scan at 0000 and was 175cc after which patient up at bedside (with 1 assist + walker) to use urinal and voided 300cc brown urine and had 1 large clot; was also incontinent at that time. Transferred to recliner with 2 assists + walker. No SCD's ordered at this time. Fall risk score is high and bed/chair alarm in use.
[2022-06-24] VITALS (13 sets, daily range): BP systolic 138–165; BP diastolic 75–88; PULSE 66–83; RESP 18–30; TEMP 35.9–36.6; O2SAT 91–97
[2022-06-24] MEDS: SODIUM CHLORIDE 0.9% FLUSH 10 ML IV ×4 (00:18→22:00)
[2022-06-24] MEDS: SODIUM CHLORIDE 0.9% 250 ML 21 ML IV ×2 (05:31→17:38)
[2022-06-24 05:58] LABS: Add Manual Diff / Slide Review NO; Basophils Absolute Auto 100 /uL (0-100); Basophils Percent Auto 0.4 % (0-2); Eosinophils Absolute Auto 300 /uL (0-450); Eosinophils Percent Auto 2.6 % (2-4); Hematocrit 31.9 % (41-53); Hemoglobin 10.7 g/dL (13.5-17.5); Lymphocytes Absolute Auto 1200 /uL (1100-4500); Lymphocytes Percent Auto 9.9 % (25-40); Mean Corpuscular HGB Conc 33.6 % (30-36); Mean Corpuscular Hemoglobin 27.6 PG (26-34); Mean Corpuscular Volume 82.2 fL (80-100); Monocytes Absolute Auto 600 /uL (0-900); Neutrophils Absolute Auto 9800 /uL (1500-7000); Neutrophils Percent Auto 82.1 % (50-75); Platelet Count 315 X10^3/uL (150-400); Red Blood Cell Count 3.88 X10^6/uL (4.5-5.9); Red Cell Distribution Width 13.5 % (11.6-14.8)
[2022-06-24 06:08] LABS: BUN Creatinine Ratio 25.7 (6-22); Blood Urea Nitrogen 27 mg/dL (9-20); Calcium 7.8 mg/dL (8.4-10.2); Carbon Dioxide 30 mmol/L (22-32); Chloride 104 mmol/L (98-107); Estimated Glomerular Filt Rate > 60 mL/min (>60); Glucose 121 mg/dL (80-110); HEMOLYSIS < 15 (0-50); Potassium 3.6 mmol/L (3.4-5.1); Sodium 139 mmol/L (137-145)
--- NOTE | 2022-06-24 06:30 | DI.RAD.S_ITS ---
PROCEDURE: XR CHEST 1V INDICATIONS: f/u chest tube and effusion TECHNIQUE: One view of the chest was acquired. COMPARISON: [facility], CT, CT CHEST WO CON, 06/22/2022, 19:47. [facility], CR, XR CHEST 1V, 06/23/2022, 13:50. FINDINGS: Surgical changes and devices: There is a left-sided chest tube inferiorly. Lungs and pleura: No significant pneumothorax is seen. No significant pleural effusion. Poorly defined opacity is seen at the left lung base. Low lung volumes are noted. This causes a crowded appearance to the lung markings and limits evaluation. Mediastinum: The cardiac contours are within normal limits. The aorta demonstrates calcification and tortuosity. Bones and chest wall: No suspicious bony lesions. Age-appropriate bony degenerative changes are seen. Overlying soft tissues appear unremarkable. IMPRESSION: Left-sided chest tube, without significant pneumothorax or pleural effusion. Poorly defined opacity is again seen at the left lung base, likely related to infection. Dictated by: Panchito Ham M.D. on 06/24/2022 at 9:33 Approved by: Panchito Ham M.D. on 06/24/2022 at 9:34
[2022-06-24] MEDS: metroNIDAZOLE 500 MG/100 ML PIGGYBACK 100 MG IV (06:40)
[2022-06-24] MEDS: OXYCODONE IR 10 MG TABLET PO ×3 (08:07→21:58)
[2022-06-24] MEDS: AMLODIPINE 5 MG TABLET PO (08:57)
[2022-06-24] MEDS: METOPROLOL ER 50 MG TABLET PO (08:57)
[2022-06-24] MEDS: APIXABAN 5 MG TABLET PO ×2 (09:01→21:57)
[2022-06-24] MEDS: PARoxetine 20 MG TABLET PO (09:01)
[2022-06-24] MEDS: GABAPENTIN 300 MG CAPSULE 900 MG PO ×3 (09:01→21:57)
[2022-06-24] MEDS: CEFEPIME 2 GM in SODIUM CHLORIDE 0.9% 100 ML IV ×2 (10:34→22:05)
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
--- NOTE | 2022-06-24 15:51 | PM.PN.1 ---
Subjective Subjective Date Patient Seen: 06/24/22 Time Patient Seen: 14:00 Interval history: Patient states he is feeling better today. His discomfort from the chest tube site is tolerable. He is breathing a little better. No other questions or concerns per RN minimal drainage overnight Exam Vital Signs (past 8 hours): - 06/24/22 08:28 06/24/22 08:57 06/24/22 08:00 Temperature Pulse Rate 76 Respiratory Rate Blood Pressure 141/84 H Pulse Oximetry 97 Oxygen Delivery Method Nasal Cannula Nasal Cannula Oxygen Flow Rate 2 06/24/22 11:00 06/24/22 09:27 06/24/22 09:00 Temperature 96.7 F L Pulse Rate 73 74 Respiratory Rate 24 Blood Pressure 147/84 H 138/75 Pulse Oximetry 95 95 Oxygen Delivery Method Nasal Cannula Oxygen Flow Rate 2 2 06/24/22 13:00 Temperature Pulse Rate Respiratory Rate Blood Pressure Pulse Oximetry 95 Oxygen Delivery Method Room Air Oxygen Flow Rate 2 Fraction of Inspired Oxygen 40 SaO2/FiO2 Ratio 232 Oxygen Delivery Method Room Air Oxygen Flow Rate 2 Narrative Exam Narrative: Awake alert oriented in no acute distress pleasant and appropriate Breathing is nonlabored on nasal cannula Chest tube in place with serosanguineous drainage scant. Chest tube taken off of suction and no air leak appreciated. Left on water seal Objective Labs 06/24/22 05:40 06/24/22 05:40 Labs: Laboratory Results - last 24 hr 06/24/22 06/24/22 06/24/22 05:40 05:40 05:40 WBC 12.0 H RBC 3.88 L Hgb 10.7 L Hct 31.9 L MCV 82.2 MCH 27.6 MCHC 33.6 RDW 13.5 Plt Count 315 Neut % (Auto) 82.1 H Lymph % (Auto) 9.9 L [place] % (Auto) 5.0 Eos % (Auto) 2.6 Baso % (Auto) 0.4 Neut # (Auto) 9800 H Lymph # (Auto) 1200 [place] # (Auto) 600 Eos # (Auto) 300 Baso # (Auto) 100 Sodium 139 Potassium 3.6 Chloride 104 Carbon Dioxide 30 BUN 27 H Creatinine 1.05 Estimated GFR > 60 BUN/Creatinine Ratio 25.7 H Glucose 121 H Calcium 7.8 L Magnesium 2.0 PFSH Medical History Actinic keratoses Actinic keratosis (Unknown) Arthritis (Unknown) Basal cell carcinoma (Unknown) Chronic low back pain Fractures (Unknown) GERD (gastroesophageal reflux disease) (Unknown) Hearing loss (Unknown) Hyperlipemia (Unknown) Hypertension (Unknown) Hypogonadism Kidney stones (Unknown) Melanoma (2016) Obstructive sleep apnea Psoriasis (Unknown) Squamous cell carcinoma (Unknown) Surgical History History of cystoscopy Hx of hernia repair (2016) Status post colostomy Family History Mother Heart disease Hypertension Stroke [place] (myocardial infarction) Sister Hypertension Social History household members: significant other Smoking Status: Current some day smoker Tobacco: How many years used: 14 quit status: has quit before second hand exposure: Yes (childhood) alcohol intake: current substance use type: does not use Assessment & Plan Assessment & Plan narrative: We will continue to monitor chest tube. I placed it to water seal today this afternoon and will check a chest x-ray before bedtime to assure that everything looks fine. Then we will continue to water seal as needed and continue to monitor maybe there remains no air leak the tube can be removed in a day or 2. Quality VTE Deep Vein Thrombosis/Pulmonary Embolism Present on Admission: No
--- NOTE | 2022-06-24 20:48 | DI.RAD.S_ITS ---
PROCEDURE: XR CHEST 1V INDICATIONS: chest tube on waterseal TECHNIQUE: One view of the chest was acquired. COMPARISON: [facility], CT, CT CHEST WO CON, 06/22/2022, 19:47. [facility], CR, XR CHEST 1V, 06/23/2022, 13:50. [facility], CR, XR CHEST 1V, 06/24/2022, 6:06. FINDINGS: Surgical changes and devices: There is a left-sided chest tube inferiorly. Lungs and pleura: Low lung volumes can be seen. On this semiupright study, no pneumothorax is seen. Mediastinum: Mediastinal contours appear normal. Heart size is normal. Bones and chest wall: No suspicious bony lesions. Age-appropriate bony degenerative changes are seen. Overlying soft tissues appear unremarkable. IMPRESSION: No pneumothorax can be seen on this limited study. Dictated by: Panchito Ham M.D. on 06/24/2022 at 15:36 Approved by: Panchito Ham M.D. on 06/24/2022 at 15:37
[2022-06-24] MEDS: ATORVASTATIN 20 MG TABLET PO (21:57)
[2022-06-24] MEDS: lisinopriL 20 MG TABLET PO (21:58)
[2022-06-25] VITALS (16 sets, daily range): BP systolic 146–189; BP diastolic 72–95; PULSE 79–88; RESP 16–22; TEMP 36–37.6; O2SAT 90–96
[2022-06-25] MEDS: GABAPENTIN 300 MG CAPSULE 900 MG PO ×3 (09:19→20:36)
[2022-06-25] MEDS: METOPROLOL ER 50 MG TABLET PO (09:20)
[2022-06-25] MEDS: CEFEPIME 2 GM in SODIUM CHLORIDE 0.9% 100 ML IV ×2 (09:21→21:00)
[2022-06-25] MEDS: SODIUM CHLORIDE 0.9% FLUSH 10 ML IV (09:21)
[2022-06-25] MEDS: lisinopriL 20 MG TABLET PO ×2 (09:21→20:37)
[2022-06-25] MEDS: PARoxetine 20 MG TABLET PO (09:21)
[2022-06-25] MEDS: AMLODIPINE 5 MG TABLET PO (09:21)
[2022-06-25] MEDS: APIXABAN 5 MG TABLET PO ×2 (09:21→20:40)
[2022-06-25] MEDS: OXYCODONE IR 10 MG TABLET PO ×3 (09:36→20:51)
[2022-06-25] MEDS: ACETAMINOPHEN 325 MG TABLET 650 MG PO ×2 (09:36→15:09)
--- NOTE | 2022-06-25 13:36 | DI.RAD.S_ITS ---
PROCEDURE: XR CHEST 1V INDICATIONS: left pleural effusion TECHNIQUE: One view of the chest was acquired. COMPARISON: [facility], CR, XR CHEST 1V, 06/24/2022, 15:46. FINDINGS: Surgical changes and devices: None. Lungs and pleura: Patchy opacities present left hemithorax more prominent when compared to prior exam. There is blunting of the left costophrenic angle. Mediastinum: Mediastinal contours appear normal. Heart size is normal. Bones and chest wall: No suspicious bony lesions. Overlying soft tissues appear unremarkable. IMPRESSION: Blunting of left costophrenic angle suggestive trace effusions. Patchy left hemithorax opacities are present which may represent edema atelectasis versus developing pneumonia. Dictated by: Bethany Marinelli M.D. on 06/25/2022 at 15:22 Approved by: Bethany Marinelli M.D. on 06/25/2022 at 15:22
--- NOTE | 2022-06-25 13:37 | PM.PN.1 ---
Subjective Subjective Date Patient Seen: 06/25/22 Time Patient Seen: 13:37 Interval history: No complaints. No shortness of breath. Exam Vital Signs (past 8 hours): - 06/25/22 08:00 06/25/22 09:20 06/25/22 09:21 Temperature 99.7 F H Pulse Rate 84 84 84 Respiratory Rate 18 Blood Pressure 179/95 H 179/95 H 179/95 H Pulse Oximetry 96 Oxygen Delivery Method Oxygen Flow Rate Fraction of Inspired Oxygen 06/25/22 09:22 Temperature Pulse Rate 80 Respiratory Rate 16 Blood Pressure Pulse Oximetry 95 Oxygen Delivery Method Nasal Cannula Oxygen Flow Rate 2 Fraction of Inspired Oxygen 28 Fraction of Inspired Oxygen 28 SaO2/FiO2 Ratio 339 Oxygen Delivery Method Nasal Cannula Oxygen Flow Rate 2 Narrative Exam Narrative: Chest tube is on water seal Chest tube shows no evidence of air leak Objective Labs 06/24/22 05:40 06/24/22 05:40 PFS Medical History Actinic keratoses Actinic keratosis (Unknown) Arthritis (Unknown) Basal cell carcinoma (Unknown) Chronic low back pain Fractures (Unknown) GERD (gastroesophageal reflux disease) (Unknown) Hearing loss (Unknown) Hyperlipemia (Unknown) Hypertension (Unknown) Hypogonadism Kidney stones (Unknown) Melanoma (2016) Obstructive sleep apnea Psoriasis (Unknown) Squamous cell carcinoma (Unknown) Surgical History History of cystoscopy Hx of hernia repair (2016) Status post colostomy Family History Mother Heart disease Hypertension Stroke [place] (myocardial infarction) Sister Hypertension Social History household members: significant other Smoking Status: Current some day smoker Tobacco: How many years used: 14 quit status: has quit before second hand exposure: Yes (childhood) alcohol intake: current substance use type: does not use Assessment & Plan Assessment and plan (1) Loculated pleural effusion: Status: Acute Plan We will check a chest x-ray today. You may need a CT scan in the near future to determine if his loculated pleural effusion is worsening. Quality VTE Deep Vein Thrombosis/Pulmonary Embolism Present on Admission: No
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
[2022-06-25] MEDS: TRAZODONE 50 MG TABLET PO (20:40)
[2022-06-25] MEDS: ATORVASTATIN 20 MG TABLET PO (20:40)
[2022-06-25] MEDS: MELATONIN 3 MG TABLET 6 MG PO (20:40)
[2022-06-26] VITALS (12 sets, daily range): BP systolic 146–176; BP diastolic 87–101; PULSE 71–85; RESP 18–20; TEMP 36.1–37.6; O2SAT 90–96
[2022-06-26 05:17] LABS: Add Manual Diff / Slide Review NO; Basophils Absolute Auto 100 /uL (0-100); Basophils Percent Auto 0.6 % (0-2); Eosinophils Absolute Auto 300 /uL (0-450); Eosinophils Percent Auto 2.3 % (2-4); Hematocrit 31.7 % (41-53); Hemoglobin 10.6 g/dL (13.5-17.5); Lymphocytes Absolute Auto 1400 /uL (1100-4500); Lymphocytes Percent Auto 11.5 % (25-40); Mean Corpuscular HGB Conc 33.3 % (30-36); Mean Corpuscular Hemoglobin 27.5 PG (26-34); Mean Corpuscular Volume 82.5 fL (80-100); Monocytes Absolute Auto 800 /uL (0-900); Monocytes Percent Auto 6.3 % (3-14); Neutrophils Absolute Auto 9600 /uL (1500-7000); Neutrophils Percent Auto 79.3 % (50-75); Platelet Count 400 X10^3/uL (150-400); Red Blood Cell Count 3.85 X10^6/uL (4.5-5.9); Red Cell Distribution Width 13.5 % (11.6-14.8)
[2022-06-26 05:25] LABS: Alanine Aminotransferase 21 IU/L (<50); Albumin 2.9 g/dL (3.5-5.0); Albumin Globulin Ratio 0.9 (1.0-2.8); Alkaline Phosphatase 76 U/L (38-126); Aspartate Aminotransferase 25 IU/L (17-59); BUN Creatinine Ratio 17.5 (6-22); Bilirubin Total 0.4 mg/dL (0.2-1.3); Blood Urea Nitrogen 14 mg/dL (9-20); Calcium 8.1 mg/dL (8.4-10.2); Chloride 98 mmol/L (98-107); Estimated Glomerular Filt Rate > 60 mL/min (>60); Globulin 3.3 g/dL (1.7-4.1); Glucose 114 mg/dL (80-110); HEMOLYSIS < 15 (0-50); Potassium 3.8 mmol/L (3.4-5.1); Sodium 139 mmol/L (137-145); Total Protein 6.2 g/dL (6.3-8.2)
[2022-06-26 05:37] LABS: Carbon Dioxide 38 mmol/L (22-32)
[2022-06-26] MEDS: OXYCODONE IR 10 MG TABLET PO ×3 (06:03→17:35)
[2022-06-26] MEDS: ACETAMINOPHEN 325 MG TABLET 650 MG PO ×2 (06:08→12:27)
[2022-06-26] MEDS: AMLODIPINE 5 MG TABLET PO ×2 (09:15→18:40)
[2022-06-26] MEDS: PARoxetine 20 MG TABLET PO (09:15)
[2022-06-26] MEDS: GABAPENTIN 300 MG CAPSULE 900 MG PO ×3 (09:15→20:38)
[2022-06-26] MEDS: APIXABAN 5 MG TABLET PO ×2 (09:15→20:39)
[2022-06-26] MEDS: CEFEPIME 2 GM in SODIUM CHLORIDE 0.9% 100 ML IV (09:16)
[2022-06-26] MEDS: lisinopriL 20 MG TABLET PO ×2 (09:16→20:39)
[2022-06-26] MEDS: METOPROLOL ER 50 MG TABLET PO (09:16)
[2022-06-26] MEDS: SODIUM CHLORIDE 0.9% FLUSH 10 ML IV ×2 (09:16→20:30)
[2022-06-26] MEDS: METOPROLOL TARTRATE 5 MG/5 ML INJ IV (13:12)
--- NOTE | 2022-06-26 13:36 | DIET.CONS2 ---
Dietary Inpatient Consultation Note Admission Date: 06/21/2022 03:23 76y M screened by RD for LOS day 5. Pt admitted for generalized weakness found to have pneumonia with placement of chest tube on 06/23. Pt with poor POs during early hospital stay 0-25% improving over last 24hrs to 50-100%. RD to continue monitoring POs until d/c. Diet: 06/23/22 Dinner Heart Healthy Diet Diet Modifications: Sodium Level: 2 gm Sodium Nutrition Percent Meal Consumed 50% 06/26/22 09:58 Percent Meal Consumed 100% 06/25/22 12:00 Electronically Signed by: Jane Dobbins 06/26/22 13:36 Clinical Dietitian [address] [address]
--- NOTE | 2022-06-26 14:56 | PC.NURSE ---
Pt is Alert &OX3 forgetful of the date. Hypertensive this a.m. and a.m. anithypertensives administered. He c/o of headache and pain around CT insertion site with couging shoots up to 10/10 with coughing pain. RN returned after initial assessment to administer prn oxycodone per request this a.m. but patient asleep, allowed to rest until lunch. His 02 sats drop while he is sleeping 83-88 however when he is awake he is able to keep 02 sats 90-94% on RA. Noon BP is still elevated after (173/101) reassessment and administering pain medication oxycodone. notified and IV metrolol 5mg given with good effect, 157/87. He denies any dizziness/ light headedness and tolerates sitting up in the chair for >1 hour and ambulating around the nursing station x1 on RA. He requests to be assisted back to bed to rest after this.
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
--- NOTE | 2022-06-26 16:41 | DI.CT.S_ITS ---
PROCEDURE: CT CHEST W CON INDICATIONS: reaccumulation of pleural fluid after Chest tube placement. TECHNIQUE: After the administration of intravenous contrast, 5 mm thick sections acquired from the pulmonary apices to the posterior costophrenic angles. 1 mm axial lung, 5 mm thick coronal and sagittal reformats and 7 mm axial MIP were acquired. For radiation dose reduction, the following was used: automated exposure control, adjustment of mA and/or kV according to patient size. COMPARISON: [facility], CT, CT CHEST WO [facility], 06/22/2022, 19:47. FINDINGS: Image quality: Excellent. Lungs and pleura: There is consolidation in the left lower lobe and lingula as well as compressive atelectasis. Left pleural effusion appears loculated. Chest tube is in place. Air-fluid levels are noted within the loculated fluid likely due to intervention with the chest tube. The right lung is clear with no focal consolidation, mass, pneumothorax, or pleural effusion. Mediastinum: Heart size is normal. The coronary arteries have atherosclerotic calcifications. No pericardial effusion. No mediastinal or hilar adenopathy by size criteria. Thoracic aorta and central pulmonary arteries are normal in size. Esophagus is normal in caliber. Small hiatal hernia. Bones and chest wall: No suspicious bony lesions. No vertebral body compression fractures. No axillary or supraclavicular adenopathy by size criteria. Thyroid gland is normal. Abdomen: Visualized upper abdominal solid organs appear normal. Upper abdominal bowel loops are normal in caliber. IMPRESSION: 1. Loculated left pleural effusion similar in size to pleural effusion on 06/22/2022. 2. Chest tube is in place along the left hemidiaphragm and is likely not draining many of the loculations. 3. Left basilar and lingular consolidation/atelectasis unchanged. Dictated by: Luther Hernandez M.D. on 06/26/2022 at 17:14 Approved by: Luther Hernandez M.D. on 06/26/2022 at 17:21
[2022-06-26] MEDS: ATORVASTATIN 20 MG TABLET PO (20:38)
[2022-06-26] MEDS: TRAZODONE 50 MG TABLET PO (20:39)
[2022-06-26] MEDS: MELATONIN 3 MG TABLET 6 MG PO (20:39)
[2022-06-27] VITALS (16 sets, daily range): BP systolic 135–158; BP diastolic 76–96; PULSE 68–87; RESP 16–18; TEMP 35.9–37.2; O2SAT 92–96
[2022-06-27] MEDS: CEFEPIME 2 GM in SODIUM CHLORIDE 0.9% 100 ML IV ×3 (00:38→22:33)
[2022-06-27 05:18] LABS: Add Manual Diff / Slide Review NO; Basophils Absolute Auto 100 /uL (0-100); Basophils Percent Auto 0.5 % (0-2); Eosinophils Absolute Auto 300 /uL (0-450); Eosinophils Percent Auto 2.1 % (2-4); Hematocrit 34.1 % (41-53); Hemoglobin 11.4 g/dL (13.5-17.5); Lymphocytes Absolute Auto 1500 /uL (1100-4500); Lymphocytes Percent Auto 11.4 % (25-40); Mean Corpuscular HGB Conc 33.4 % (30-36); Mean Corpuscular Hemoglobin 27.5 PG (26-34); Mean Corpuscular Volume 82.6 fL (80-100); Monocytes Absolute Auto 800 /uL (0-900); Monocytes Percent Auto 5.8 % (3-14); Neutrophils Absolute Auto 10700 /uL (1500-7000); Neutrophils Percent Auto 80.2 % (50-75); Platelet Count 423 X10^3/uL (150-400); Red Blood Cell Count 4.14 X10^6/uL (4.5-5.9); Red Cell Distribution Width 13.4 % (11.6-14.8); White Blood Cell Count 13.3 X10^3/uL (4.5-11.0)
[2022-06-27 05:29] LABS: Alanine Aminotransferase 20 IU/L (<50); Albumin 2.9 g/dL (3.5-5.0); Albumin Globulin Ratio 0.9 (1.0-2.8); Alkaline Phosphatase 73 U/L (38-126); Aspartate Aminotransferase 22 IU/L (17-59); BUN Creatinine Ratio 17.9 (6-22); Bilirubin Total 0.4 mg/dL (0.2-1.3); Blood Urea Nitrogen 14 mg/dL (9-20); Calcium 8.2 mg/dL (8.4-10.2); Chloride 95 mmol/L (98-107); Estimated Glomerular Filt Rate > 60 mL/min (>60); Globulin 3.4 g/dL (1.7-4.1); Glucose 111 mg/dL (80-110); HEMOLYSIS < 15 (0-50); Potassium 4.1 mmol/L (3.4-5.1); Sodium 136 mmol/L (137-145); Total Protein 6.3 g/dL (6.3-8.2)
[2022-06-27 05:36] LABS: Carbon Dioxide 38 mmol/L (22-32)
[2022-06-27] MEDS: OXYCODONE IR 10 MG TABLET PO ×2 (06:46→15:33)
[2022-06-27] MEDS: lisinopriL 20 MG TABLET PO ×2 (08:34→20:35)
[2022-06-27] MEDS: METOPROLOL ER 50 MG TABLET PO (08:35)
[2022-06-27] MEDS: APIXABAN 5 MG TABLET PO ×2 (08:35→20:35)
[2022-06-27] MEDS: PARoxetine 20 MG TABLET PO (08:35)
[2022-06-27] MEDS: AMLODIPINE 5 MG TABLET 10 MG PO (08:36)
[2022-06-27] MEDS: GABAPENTIN 300 MG CAPSULE 900 MG PO ×3 (08:36→20:35)
[2022-06-27] MEDS: SODIUM CHLORIDE 0.9% FLUSH 10 ML IV ×2 (08:37→21:00)
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
--- NOTE | 2022-06-27 15:38 | CM.DPC ---
DCP Cont: Per MD, pt's PE is not resolving even with chest tube and per further Surgeon Consult the recommendation is transfer for higher level of care. Per MD, pt accepted at [facility] for higher level of care for pulmonary consultation, possible thoracic surgery. Per special effects makeup artist, pt accepted at [facility] but they cannot accept until tomorrow and they will work to set up transport. Plan: SW to follow for plan of hospital transfer to [facility] tomorrow for higher level of care needs. JOHNSON Viveros
[2022-06-27] MEDS: ATORVASTATIN 20 MG TABLET PO (20:35)
[2022-06-27] MEDS: MELATONIN 3 MG TABLET 6 MG PO (20:36)
[2022-06-27] MEDS: TRAZODONE 50 MG TABLET PO (20:36)
[2022-06-28] VITALS (15 sets, daily range): BP systolic 130–154; BP diastolic 67–83; PULSE 71–83; RESP 15–28; TEMP 36.1–36.9; O2SAT 92–97
[2022-06-28 05:16] LABS: Add Manual Diff / Slide Review NO; Basophils Absolute Auto 0 /uL (0-100); Basophils Percent Auto 0.3 % (0-2); Eosinophils Absolute Auto 200 /uL (0-450); Eosinophils Percent Auto 1.7 % (2-4); Hematocrit 32.9 % (41-53); Hemoglobin 10.9 g/dL (13.5-17.5); Lymphocytes Absolute Auto 1300 /uL (1100-4500); Lymphocytes Percent Auto 10.2 % (25-40); Mean Corpuscular HGB Conc 33.2 % (30-36); Mean Corpuscular Hemoglobin 27.5 PG (26-34); Mean Corpuscular Volume 82.7 fL (80-100); Monocytes Absolute Auto 800 /uL (0-900); Monocytes Percent Auto 6.2 % (3-14); Neutrophils Absolute Auto 10400 /uL (1500-7000); Neutrophils Percent Auto 81.6 % (50-75); Platelet Count 464 X10^3/uL (150-400); Red Blood Cell Count 3.98 X10^6/uL (4.5-5.9); Red Cell Distribution Width 13.4 % (11.6-14.8); White Blood Cell Count 12.7 X10^3/uL (4.5-11.0)
[2022-06-28 05:24] LABS: Alanine Aminotransferase 21 IU/L (<50); Albumin 2.9 g/dL (3.5-5.0); Albumin Globulin Ratio 0.9 (1.0-2.8); Alkaline Phosphatase 73 U/L (38-126); Aspartate Aminotransferase 24 IU/L (17-59); BUN Creatinine Ratio 19.3 (6-22); Bilirubin Total 0.3 mg/dL (0.2-1.3); Blood Urea Nitrogen 17 mg/dL (9-20); Calcium 8.4 mg/dL (8.4-10.2); Chloride 95 mmol/L (98-107); Estimated Glomerular Filt Rate > 60 mL/min (>60); Globulin 3.2 g/dL (1.7-4.1); Glucose 125 mg/dL (80-110); HEMOLYSIS < 15 (0-50); Potassium 3.5 mmol/L (3.4-5.1); Sodium 138 mmol/L (137-145); Total Protein 6.1 g/dL (6.3-8.2)
[2022-06-28 05:30] LABS: Carbon Dioxide 39 mmol/L (22-32)
[2022-06-28] MEDS: OXYCODONE IR 10 MG TABLET PO ×2 (07:53→14:41)
[2022-06-28] MEDS: ACETAMINOPHEN 325 MG TABLET 650 MG PO ×2 (07:54→14:46)
[2022-06-28] MEDS: PARoxetine 20 MG TABLET PO (08:00)
[2022-06-28] MEDS: GABAPENTIN 300 MG CAPSULE 900 MG PO ×3 (08:00→21:01)
[2022-06-28] MEDS: lisinopriL 20 MG TABLET PO ×2 (08:00→21:01)
[2022-06-28] MEDS: AMLODIPINE 5 MG TABLET 10 MG PO (08:00)
[2022-06-28] MEDS: METOPROLOL ER 50 MG TABLET PO (08:01)
[2022-06-28] MEDS: CEFEPIME 2 GM in SODIUM CHLORIDE 0.9% 100 ML IV ×2 (09:56→21:07)
[2022-06-28] MEDS: SODIUM CHLORIDE 0.9% 250 ML 21 ML IV (09:57)
[2022-06-28] MEDS: SODIUM CHLORIDE 0.9% FLUSH 10 ML IV ×2 (09:58→21:14)
[2022-06-28] MEDS: APIXABAN 5 MG TABLET PO (10:00)
[2022-06-28] MEDS: POTASSIUM CHLORIDE 20 MEQ TAB 40 MEQ PO (10:01)
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
--- NOTE | 2022-06-28 15:38 | PM.PROC.1 ---
Procedures Date/Time Date of procedure: 06/28/22 Time of procedure: 14:30 General Procedure description: Intrapleural tPA Procedure Note Chest tube was taken off of suction. 10 mg of tPA (alteplase) was administered by the physician into the chest tube. This was then flushed with 60mL of normal saline. The chest tube was clamped per physician order to allow for a dwell time of 1 hour. There were no complications.
[2022-06-28] MEDS: MORPHINE 2 MG/ML INJ IV (18:25)
--- NOTE | 2022-06-28 18:53 | PC.NURSE ---
Day shift: Pt daughter at bedside, requested pt have a shower today. Pt agreeable for shower after lunch. Pt declined when offered shower after lunch. Pt requested a shower later in the day. PCT also offered bathing several times throughout shift. When pt reapproached on bathing, pt had visitors and declined a shower at that time. Pt offered a bed bath after dinner and pt declines at this time. Pt states he will accept later this evening. Care ongoing. Reported to high school english teacher RN.
[2022-06-28] MEDS: ATORVASTATIN 20 MG TABLET PO (21:02)
[2022-06-28] MEDS: MELATONIN 3 MG TABLET 6 MG PO (21:02)
[2022-06-28] MEDS: TRAZODONE 50 MG TABLET PO (21:02)
[2022-06-29] VITALS (11 sets, daily range): BP systolic 112–155; BP diastolic 8–87; PULSE 75–89; RESP 17–26; TEMP 35.7–36.7; O2SAT 90–96
[2022-06-29 05:57] LABS: HEMOLYSIS < 15 (0-50); Potassium 4.3 mmol/L (3.4-5.1)
[2022-06-29 08:45] LABS: Add Manual Diff / Slide Review NO; Basophils Absolute Auto 100 /uL (0-100); Basophils Percent Auto 0.6 % (0-2); Eosinophils Absolute Auto 200 /uL (0-450); Eosinophils Percent Auto 1.8 % (2-4); Hematocrit 34.9 % (41-53); Hemoglobin 11.7 g/dL (13.5-17.5); Lymphocytes Absolute Auto 1400 /uL (1100-4500); Mean Corpuscular HGB Conc 33.6 % (30-36); Mean Corpuscular Hemoglobin 27.7 PG (26-34); Mean Corpuscular Volume 82.6 fL (80-100); Monocytes Absolute Auto 600 /uL (0-900); Monocytes Percent Auto 5.5 % (3-14); Neutrophils Absolute Auto 9300 /uL (1500-7000); Neutrophils Percent Auto 80.1 % (50-75); Platelet Count 544 X10^3/uL (150-400); Red Blood Cell Count 4.23 X10^6/uL (4.5-5.9); Red Cell Distribution Width 13.4 % (11.6-14.8); White Blood Cell Count 11.6 X10^3/uL (4.5-11.0)
[2022-06-29 08:54] LABS: BUN Creatinine Ratio 21.3 (6-22); Blood Urea Nitrogen 17 mg/dL (9-20); Calcium 8.3 mg/dL (8.4-10.2); Carbon Dioxide 39 mmol/L (22-32); Chloride 96 mmol/L (98-107); Estimated Glomerular Filt Rate > 60 mL/min (>60); Glucose 107 mg/dL (80-110); HEMOLYSIS < 15 (0-50); Potassium 4.5 mmol/L (3.4-5.1); Sodium 139 mmol/L (137-145)
[2022-06-29] MEDS: SODIUM CHLORIDE 0.9% FLUSH 10 ML IV ×2 (09:00→20:48)
[2022-06-29] MEDS: GABAPENTIN 300 MG CAPSULE 900 MG PO ×3 (09:06→20:42)
[2022-06-29] MEDS: PARoxetine 20 MG TABLET PO (09:06)
[2022-06-29] MEDS: lisinopriL 20 MG TABLET PO ×2 (09:06→20:42)
[2022-06-29] MEDS: AMLODIPINE 5 MG TABLET 10 MG PO (09:06)
[2022-06-29] MEDS: METOPROLOL ER 50 MG TABLET PO (09:07)
[2022-06-29] MEDS: OXYCODONE IR 10 MG TABLET PO ×3 (09:09→22:00)
[2022-06-29] MEDS: ACETAMINOPHEN 325 MG TABLET 650 MG PO ×2 (09:09→16:52)
[2022-06-29] MEDS: ENOXAPARIN 40 MG/0.4 ML SYRINGE SUBCUT (10:45)
--- NOTE | 2022-06-29 14:44 | CM.DPNOTE ---
DCP Note Patient still awaiting transfer for higher level of care- for pulmonary consultation, possible thoracic surgery CM team continues to follow closely JW
[2022-06-29] MEDS: polyethylene glycoL 3350 17 GM POWD.PACK PO (16:51)
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
[2022-06-29] MEDS: CEFEPIME 2 GM in SODIUM CHLORIDE 0.9% 100 ML IV (19:32)
[2022-06-29] MEDS: ATORVASTATIN 20 MG TABLET PO (20:43)
--- NOTE | 2022-06-29 22:30 | PC.NURSE ---
Addendum entered by Diamante Ponce R.N. 06/30/22 00:03: Patient sent to facility at 0003 on 06/30/2022. Original Note: Patient informed of transfer to another facility, and accepting of transfer. Report called to [facility] at [facility], pick up and delivery driver time [id number]. Patient medicated for pain and awaiting transport.
== END 2022-06-30 00:03 | disposition short-term general hospital (02) | DRG 871 ==
LOC: ED 00:55 → AC 03:24
PROVIDERS: Internal Medicine; Student in an Organized Health Care Education/Training Program; Surgery; Admitting Provider Internal Medicine; Emergency Provider Emergency Medicine; Family Provider Family Medicine; PCP Family Medicine; Referring Provider Emergency Medicine; Visit Provider Internal Medicine
PROC: 0W9B00Z Drainage of Left Pleural Cavity with Drainage Device, Open Approach (ICD-10-PCS; CPT 32551; principal; 2022-06-23 13:00)
DX: A41.9 Sepsis, unspecified organism (principal); G93.41 Metabolic encephalopathy; J18.9 Pneumonia, unspecified organism; J96.01 Acute respiratory failure with hypoxia; J90 Pleural effusion, not elsewhere classified; N17.9 Acute kidney failure, unspecified; R65.20 Severe sepsis without septic shock; I48.91 Unspecified atrial fibrillation; I72.8 Aneurysm of other specified arteries; T83.021A Displacement of indwelling urethral catheter, initial encounter; R31.9 Hematuria, unspecified; F17.200 Nicotine dependence, unspecified, uncomplicated; Z20.822 Contact with and (suspected) exposure to COVID-19; Z87.81 Personal history of (healed) traumatic fracture
CPT/HCPCS: 32551; 36415; 36592; 36600; 71045; 71250; 71260; 71275; 74177; 76705; 80048; 80053; 81001; 82550; 82805; 83605; 83735; 83880; 84132; 84145; 84484; 85025; 85610; 85730; 87040; 87070; 87075; 87205; 87633; 87797; 87801; 93005; 93010; 93306; 94660; 94760; 96365; 96366; 96368; 96375; 99231; 99232; 99285; J0692; J1642; J1650; J1885; J1940; J2250; J2270; J2543; J3010; J3475; Q9967

== ENCOUNTER → 2022-08-27 10:42 | Outpatient (CLI) | payer OTHER, SELFPAY ==
[2022-06-21 01:30] VITALS: RESP 24
[2022-06-21 03:35] VITALS: BMI 37.0
--- NOTE | 2022-08-27 | DI.CT.S_ITS ---
PROCEDURE: CT CHEST WO CON INDICATIONS: Pleural effusion, not elsewhere classified TECHNIQUE: Noncontrast 5 mm thick sections acquired from the pulmonary apices to the posterior costophrenic angles. 1 mm lung window, 5 mm thick coronal and sagittal and 7 mm axial MIP reformats were then acquired. For radiation dose reduction, the following was used: automated exposure control, adjustment of mA and/or kV according to patient size. COMPARISON: [facility], CT, CT ABDOMEN PELVIS W CON, 06/21/2022, 2:08. [facility], CT, CT ANGIO CHEST PE PROTOCOL, 06/21/2022, 2:08. [facility], CR, XR CHEST 1V, 06/24/2022, 15:46. [facility], CR, XR CHEST 1V, 06/25/2022, 13:33. [facility], CT, CT CHEST W CON, 06/26/2022, 17:00. [facility], CT, CT CHEST WO CON, 06/22/2022, 19:47. FINDINGS: Image quality: Excellent. Lungs and pleura: The left basilar thoracostomy tube has been removed. There is small residual pleural effusion, decreased compared to the last exam. There is lingula and right lower lobe scars and atelectasis. There is 3 mm nodule in the right upper lobe (series 3, image 138). A 3 mm nodule is seen in the right upper lobe (series 3 image 129). Both nodules are unchanged in size. No acute air space opacities. No pleural effusions or pneumothorax. Central and peripheral airways are patent and normal in caliber. Mediastinum: Heart size is normal. Mild coronary artery calcification. No pericardial effusion. No mediastinal adenopathy by size criteria. Thoracic aorta and central pulmonary arteries are normal in size. Esophagus is normal in caliber. No hiatal hernia. Bones and chest wall: No suspicious bony lesions. No vertebral body compression fractures. No axillary or supraclavicular adenopathy by size criteria. Thyroid gland is normal. Abdomen: Visualized upper abdominal solid organs and bowel loops appear normal in the absence of contrast. IMPRESSION: 1. A small left pleural effusion is present, decreased when compared to the last exam. 2. There are lingula and lower lobe scars and atelectasis. 3. Stable small pulmonary nodules bilaterally. Dictated by: Alex Reis M.D. on 08/27/2022 at 13:34 Approved by: Alex Reis M.D. on 08/27/2022 at 13:45
== END ==
PROVIDERS: Family Provider Family Medicine; PCP Family Medicine; Referring Provider Internal Medicine Infectious Disease; Visit Provider Internal Medicine Infectious Disease
DX: J90 Pleural effusion, not elsewhere classified (principal); J98.11 Atelectasis; R91.8 Other nonspecific abnormal finding of lung field
CPT/HCPCS: 71250

== ENCOUNTER → 2022-10-01 10:37 | Outpatient (CLI) | payer OTHER, SELFPAY ==
[2022-06-21 01:30] VITALS: RESP 24
[2022-06-21 03:35] VITALS: BMI 37.0
[2022-10-01 13:59] LABS: Appearance Urine UA CLEAR; Bilirubin Urine UA NEGATIVE (NEGATIVE); Color Urine UA YELLOW; Glucose Urine UA NEGATIVE (Negative); Ketones Urine UA TRACE (NEGATIVE); Leukocyte Esterase Urine UA NEGATIVE (NEGATIVE); Nitrite Urine UA NEGATIVE (Negative); Occult Blood Urine UA NEGATIVE (Negative); Protein Urine UA TRACE (Negative); Specific Gravity Urine UA 1.025 (1.000-1.035); pH Urine UA 5.5 (4.5-8.0)
[2022-10-01 14:10] LABS: Bacteria Urine None Seen; Culture Indicated Urine Cult Not Indicated; RBC Urine None Seen (0-5/HPF); Squamous Epithelial Cell Urine None Seen (0-5/HPF); WBC Urine None Seen (0-5/HPF)
== END ==
PROVIDERS: Family Provider Family Medicine; PCP Family Medicine; Referring Provider Family Medicine; Visit Provider Family Medicine
DX: R32 Unspecified urinary incontinence (principal); J90 Pleural effusion, not elsewhere classified; Z87.81 Personal history of (healed) traumatic fracture
CPT/HCPCS: 81001

== ENCOUNTER 2023-01-12 19:03 | Emergency (ER) | payer OTHER, SELFPAY ==
[2022-06-21 01:30] VITALS: RESP 24
[2022-06-21 03:35] VITALS: BMI 37.0
[2023-01-12 19:08] VITALS: BP 190/100; PULSE 89; RESP 28; TEMP 37.5; O2SAT 96; BMI 38.9
[2023-01-12 19:24] VITALS: BP 175/95; PULSE 83; O2SAT 94
[2023-01-12 19:30] VITALS: BP 184/95; PULSE 84; O2SAT 94
[2023-01-12 19:45] VITALS: BP 172/89; PULSE 83; O2SAT 94
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
== END 2023-01-12 20:03 | disposition home or self-care (01) ==
PROVIDERS: Emergency Provider Emergency Medicine; Family Provider Family Medicine; PCP Family Medicine
DX: U07.1 COVID-19 (principal)
CPT/HCPCS: 99281; 99282

== ENCOUNTER → 2024-05-11 11:43 | Outpatient (CLI) | payer OTHER, SELFPAY ==
[2022-06-21 01:30] VITALS: RESP 24
[2022-06-21 03:35] VITALS: BMI 37.0
[2024-05-11 12:05] LABS: Add Manual Diff / Slide Review NO; Basophils Absolute Auto 0 /uL (0-100); Basophils Percent Auto 0.8 % (0-2); Eosinophils Absolute Auto 200 /uL (0-450); Eosinophils Percent Auto 3.3 % (2-4); Hematocrit 42.7 % (41-53); Hemoglobin 14.4 g/dL (13.5-17.5); Lymphocytes Absolute Auto 1700 /uL (1100-4500); Lymphocytes Percent Auto 29.1 % (25-40); Mean Corpuscular HGB Conc 33.7 % (30-36); Mean Corpuscular Hemoglobin 28.2 PG (26-34); Mean Corpuscular Volume 83.8 fL (80-100); Monocytes Absolute Auto 400 /uL (0-900); Monocytes Percent Auto 6.3 % (3-14); Neutrophils Absolute Auto 3600 /uL (1500-7000); Neutrophils Percent Auto 60.5 % (50-75); Platelet Count 236 X10^3/uL (150-400); Red Cell Distribution Width 13.8 % (11.6-14.8)
[2024-05-11 12:18] LABS: Alanine Aminotransferase 21 IU/L (<50); Albumin 4.5 g/dL (3.5-5.0); Albumin Globulin Ratio 1.5 (1.0-2.8); Alkaline Phosphatase 73 U/L (38-126); Aspartate Aminotransferase 30 IU/L (17-59); BUN Creatinine Ratio 16.5 (6-22); Bilirubin Total 0.7 mg/dL (0.2-1.3); Blood Urea Nitrogen 21 mg/dL (9-20); Calcium 9.1 mg/dL (8.4-10.2); Carbon Dioxide 32 mmol/L (22-32); Chloride 102 mmol/L (98-107); Cholesterol 174 mg/dL (140-199); Estimated Glomerular Filt Rate 58 mL/min (>60); Glucose 94 mg/dL (80-110); HDL Cholesterol 48 mg/dL (40-60); HEMOLYSIS < 15 (0-50); LDL Cholesterol Calculated 86 mg/dL (<100); Potassium 4.6 mmol/L (3.4-5.1); Sodium 141 mmol/L (137-145); Total Protein 7.5 g/dL (6.3-8.2); Triglycerides 200 mg/dL (35-150)
[2024-05-11 12:47] LABS: TSH w/ Reflex to FT4 1.48 uIU/mL (0.47-4.68)
[2024-05-11 12:49] LABS: Prostate Specific Antigen Scrn 3.74 ng/mL (0.1-4.0)
== END ==
PROVIDERS: Family Provider Family Medicine; PCP Family Medicine; Referring Provider Family Medicine; Visit Provider Family Medicine
DX: Z00.00 Encounter for general adult medical examination without abnormal findings (principal); E78.5 Hyperlipidemia, unspecified; Z12.5 Encounter for screening for malignant neoplasm of prostate; I10 Essential (primary) hypertension
CPT/HCPCS: 36415; 80053; 80061; 84443; 85025; G0103

== ENCOUNTER → 2024-12-11 18:23 | Outpatient (CLI) | payer OTHER, SELFPAY ==
[2022-06-21 01:30] VITALS: RESP 24
[2022-06-21 03:35] VITALS: BMI 37.0
--- NOTE | 2024-12-11 18:27 | DI.MRI.S_ITS ---
PROCEDURE: MR HEAD/BRAIN WO/W CON INDICATIONS: Malignant melanoma LT UE TECHNIQUE: Noncontrast axial T1 spin echo, axial T2 fast spin echo, sagittal and axial FLAIR, coronal T2 fast spin echo, axial gradient echo, axial diffusion and ADC through the brain. After the administration of contrast, axial and coronal and sagittal T1 spin echo with fat saturation through the brain. COMPARISON: None. FINDINGS: Image quality: Artifact on all sequences as coils were unable to be used due to patient positioning.. CSF spaces: Basal cisterns are patent. No extra-axial fluid collections. Ventricles are normal in size and shape. Brain: No midline shift. No intracranial bleeds or masses. No abnormal intracranial enhancement. There is cerebral volume loss for age. There is periventricular white matter chronic small vessel ischemic change. The brainstem appears normal. Diffusion-weighted images are significantly limited and essentially nondiagnostic. No chronic ischemic insults. Normal intravascular flow voids are present. Vertebral basilar dolichoectasia. Skull and face: Calvarial marrow is normal in signal. Bilateral lens replacements. Otherwise, the orbits are unremarkable. Sinuses: Maxillary sinus mucous retention cyst. Sinuses and mastoids otherwise appear clear. IMPRESSION: Limited exam with artifact on all sequences due to patient positioning and inability to use MRI coils. No definite intracranial metastatic disease or abnormal intracranial enhancement is identified. Approved by: Lam Robles M.D. on 12/12/2024 at 0:53
== END ==
LOC: MRI 18:25
PROVIDERS: PCP Family Medicine; Referring Provider Surgery; Visit Provider Surgery
DX: C43.62 Malignant melanoma of left upper limb, including shoulder (principal)
CPT/HCPCS: 70553; A9579